=== PATIENT | male | born 1970 ===

== ENCOUNTER 2017-06-17 06:36 | Inpatient (IN) | payer OTHER ==
[2017-06-17] MEDS ORDERED: Sodium Chloride 0.9% 1,000 ML IV STA (07:03)
[2017-06-17 07:21] LABS: BASO # 0.03 K/mm3 (0.0-2.0); BASO % 0.1 % (0.0-3.0); GRAN # 17.88 (1.4-6.5); GRAN % 84.3 % (50.0-68.0); HEMATOCRIT 41.7 % (42.0-52.0); LYMPH # 2.6 (1.2-3.4); LYMPH % 12.3 % (22.0-35.0); MEAN CELL VOLUME 84.6 fl (80.0-105.0); MEAN CORPUSCULAR HEMOGLOBIN 29.2 pg (25.0-35.0); MEAN CORPUSCULAR HGB CONC 34.5 g/dl (31.0-37.0); MEAN PLATELET VOLUME 10.9 fl (7.0-11.0); MONO # 0.7 (0.1-0.6); MONO % 3.3 % (1.0-6.0); PLATELET COUNT 322 10^3/uL (120.0-450.0); RED CELL DISTRIBUTION WIDTH 12.6 % (11.5-14.5); WHITE BLOOD COUNT 21.3 10^3/ul (4.5-11.0)
[2017-06-17 07:22] LABS: ADD MANUAL DIFF? NO
[2017-06-17] MEDS ORDERED: Iohexol 240 (50 ml) ONE (07:30)
--- NOTE | 2017-06-17 07:36 | ED PDOC ---
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 Patient reports he has been having soft stool during bowel movements since Thursday, but today at 1 AM he developed abdominal pain (generalized and sharp in nature--no radiation). He also feels bloated, constipated and at 2:30 AM he began to vomit (3 episodes total). Patient denies eating anything unusual; no one else in his household is sick with similar symptoms. Pt had similar symptoms of abd pain in December and the symptoms resolved after taking Dulcolax. Patient also states felling warm and having diaphoresis (but no documented fever). Patient denies chest pain, shortness of breath, headache, chills, cough, dysuria, hematuria, frequency, flank pain, or other complaints. PMD: Dr. Cox . Time/Duration: < week (3 days) Symptom Onset: Sudden Symptom Course: Unchanged Modifying Factors (Text): None Associated Symptoms (Text): bloated, constipation, nausea, vomiting, subjective fever, and diaphoresis Past Medical History - Provider Review Nursing Documentation Reviewed: Yes - Infectious Disease Hx of Infectious Diseases: None - Tetanus Immunization Tetanus Immunization: Unknown - Past Medical History Past Medical History: No Previous - Cardiac Hx Cardiac Disorders: Yes Hx Heart Murmur: Yes ( A CHILD) Hx Hypertension: Yes - Pulmonary Hx Respiratory Disorders: No (SMOKE H/O) - Neurological Hx Neurological Disorder: No - HEENT Hx HEENT Disorder: No (WEARS RX GLASSES) - Renal Hx Renal Disorder: No - Endocrine/Metabolic Hx Endocrine Disorders: No - Hematological/Oncological Hx Blood Disorders: No - Integumentary Hx Dermatological Disorder: No - Musculoskeletal/Rheumatological Hx Musculoskeletal Disorders: No Hx Falls: No - Gastrointestinal Hx Gastrointestinal Disorders: No (GASTRITIS) - Genitourinary/Gynecological Hx Genitourinary Disorders: No - Psychiatric Hx Psychophysiologic Disorder: No Hx Substance Use: No - Surgical History Hx Musculoskeletal Surgery: Yes (R hand) - Anesthesia Hx Anesthesia: Yes Hx Anesthesia Reactions: No Hx Malignant Hyperthermia: No - Suicidal Assessment Feels Threatened In Home Enviroment: No Family/Social History - Physician Review Nursing Documentation Reviewed: Yes Family/Social History: Neoplasm/Cancer (uncle had prostate cancer) Smoking Status: vape smoker Hx Alcohol Use: Yes Frequency of alcohol use: Socially Hx Substance Use: No Hx Substance Use Treatment: No Allergies/Home Meds Allergies/Adverse Reactions: Allergies No Known Allergies Allergy (Verified 06/17/17 06:52) Home Medications: Home Meds Medication Instructions Recorded Confirmed No Known Home Med 06/17/17 06/17/17 Review of Systems - Review of Systems Constitutional: Fevers Eyes: absent: Vision Changes ENT: absent: Rhinorrhea Respiratory: absent: SOB Cardiovascular: absent: Chest Pain Gastrointestinal: Abdominal Pain, Stool Changes, Constipation, Nausea, Vomiting Genitourinary Male: absent: Dysuria Musculoskeletal: absent: Back Pain Skin: absent: Rash Neurological: absent: Headache Endocrine: Diaphoresis Psychiatric: absent: Anxiety Physical Exam Vital Signs Reviewed: Yes Vital Signs Temp Pulse Resp BP Pulse Ox 06/17/17 10:48 98.7 F 88 20 133/78 99 06/17/17 08:10 80 16 130/77 98 06/17/17 06:44 98.0 F 88 18 135/95 H 96 Temperature: Afebrile Blood Pressure: Hypertensive Pulse: Regular Respiratory Rate: Normal Appearance: Positive for: Well-Appearing, Non-Toxic, Comfortable Pain Distress: None Mental Status: Positive for: Alert and Oriented X 3 - Systems Exam Head: Present: Atraumatic, Normocephalic Pupils: Present: PERRL Extroacular Muscles: Present: EOMI Conjunctiva: Present: Normal Ears: Present: Normal, NORMAL TM, Erythema, Normal Canal, TM Bulging, Fluid, TM Perf, Other Mouth: Present: Moist Mucous Membranes Nose (External): Present: Atraumatic Neck: Present: Normal Range of Motion Respiratory/Chest: Present: Clear to Auscultation, Good Air Exchange. No: Respiratory Distress, Accessory Muscle Use Cardiovascular: Present: Regular Rate and Rhythm, Normal S1, S2. No: Murmurs Abdomen: Present: Tenderness (generalized lower abdomen (right > left) and suprapubic tenderness), Normal Bowel Sounds ((+)). No: Distention, Peritoneal Signs, Guarding, Hernias Back: Present: Normal Inspection Upper Extremity: Present: Normal Inspection. No: Cyanosis, Edema Lower Extremity: Present: Normal Inspection. No: Edema Neurological: Present: GCS=15, Speech Normal, Motor Func Grossly Intact, Normal Sensory Function Skin: Present: Warm, Dry, Normal Color. No: Rashes Psychiatric: Present: Alert, Oriented x 3, Normal Insight, Normal Concentration Medical Decision Making ED Course and Treatment: 06/17/17 07:10 Initial Impression: Undifferentiated Abdominal Pain Differential Diagnosis included but are not limited to: bacterial gastroenteritis, viral gastroenteritis, diverticulitis, appendicitis, bowel obstruction (less likely) Plan: -- Chest X-ray -- CT Abdomen and Pelvis PO & IV contrast -- Labs -- Urinalysis -- Pepcid, Zofran, and Sodium Chloride -- Reassess and disposition Progress Notes: 8:13 AM: Pt states his pain is a "10". Will give pain medication. Pt also vomiting again--will give additional dose of zofran. 06/17/17 09:51 Pt feels a little better but still nauseous. Pt has just returned from CT. I will follow up the CT result. 06/17/17 11:05 CT Abdomen and Pelvis with contrast: Creator : Kishan Bridges MD FINDINGS: LOWER THORAX: Unremarkable. LIVER: Unremarkable. No gross lesion or ductal dilatation. Mild fatty infiltration of the liver GALLBLADDER AND BILE DUCTS: Unremarkable. PANCREAS: Unremarkable. No gross lesion or ductal dilatation. SPLEEN: Unremarkable. ADRENALS: Unremarkable. No mass. KIDNEYS AND URETERS:Unremarkable. No hydronephrosis. No solid mass. 6 mm nonobstructing stone in the left kidney VASCULATURE: Unremarkable. No aortic aneurysm. BOWEL: Unremarkable. No obstruction. No gross mural thickening. APPENDIX: The appendix is dilated measuring 14 mm in diameter. Minimal inflammatory changes are seen around the tip of the appendix. Findings are consistent with early appendicitis PERITONEUM: Unremarkable. No free fluid. No free air. LYMPH NODES: Unremarkable. No enlarged lymph nodes. BLADDER: Unremarkable. REPRODUCTIVE: Unremarkable. BONES: No acute fracture. OTHER FINDINGS: None. IMPRESSION: Distended appendix with minimal inflammatory changes consistent with early acute appendicitis 06/17/17 12:[address] Cox. Recommends admission and to use Dr. Doherty as jury consultant. I spoke to Dr. Doherty. He will evaluate the pt. - Lab Interpretations Lab Results: 06/17/17 07:10 06/17/17 08:17 Lab Results 06/17/17 08:20: Urine Color Yellow, Urine Appearance Clear, Urine pH 8.0, Ur Specific [place] 1.020, Urine Protein Negative, Urine Glucose (UA) Negative, Urine Ketones Negative, Urine Blood Trace-lysed H, Urine Nitrate Negative, Urine Bilirubin Negative, Urine Urobilinogen 0.2, Ur Leukocyte Esterase Negative , Urine RBC 0 - 2, Urine WBC Negative, Ur Epithelial Cells 0 - 2, Urine Bacteria Neg 06/17/17 08:17: Alcohol, Quantitative < 10 06/17/17 08:17: Sodium 139, Potassium 3.8, Chloride 99, Carbon Dioxide 28, Anion Gap 16, BUN 9, Creatinine 0.8, Est GFR ( Amer) > 60, Est GFR (Non- Af Amer) > 60, Random Glucose 122 H, Calcium 8.9, Total Bilirubin 0.7, AST 31, ALT 50, Alkaline Phosphatase 99, Total Protein 7.9, Albumin 4.8, Globulin 3.1, Albumin/Globulin Ratio 1.5, Lipase 38 06/17/17 07:10: WBC 21.3 H D, RBC 4.93, Hgb 14.4, Hct 41.7 L, MCV 84.6, MCH 29.2 , MCHC 34.5, RDW 12.6, Plt Count 322, MPV 10.9, Gran % 84.3 H, Lymph % (Auto) 12.3 L, [place] % (Auto) 3.3, Eos % (Auto) 0.0 L, Baso % (Auto) 0.1, Gran # 17.88 H , Lymph # 2.6, [place] # 0.7 H, Eos # 0.0, Baso # 0.03 I have reviewed the lab results: Yes - RAD Interpretation Radiology Orders: 06/17/17 07:21 ABD PELVIS PO & IV CONTRAST [CT] Stat 06/17/17 11:12 CHEST PORTABLE [RAD] Stat Registered Nurse Practitioner: Radiologist - Medication Orders Current Medication Orders: Acetaminophen (Tylenol 325mg Tab) 650 mg PO Q6H PRN PRN Reason: Fever >100.4 F Docusate Sodium (Colace) 100 mg PO DAILY JOSE Metronidazole (Flagyl) 500 mg in 100 mls @ 100 mls/hr IVPB STAT STA PRN Reason: Protocol Stop: 06/17/17 12:30 Last Admin: 06/17/17 11:55 Dose: 100 mls/hr Metronidazole (Flagyl) 500 mg in 100 mls @ 100 mls/hr IV Q8 [facility] PRN Reason: Protocol Ceftriaxone Sodium (Rocephin 1 Gram Ivpb) 1 gm in 100 mls @ 100 mls/hr IVPB DAILY [facility] PRN Reason: Protocol Sodium Chloride (Sodium Chloride 0.9%) 1,000 mls @ 150 mls/hr IV .Q6H40M [facility] Last Admin: 06/17/17 12:01 Dose: 150 mls/hr Morphine Sulfate (Morphine) 2 mg IVP Q4H PRN PRN Reason: Pain, moderate (4-7) Morphine Sulfate (Morphine) 4 mg IVP Q4H PRN PRN Reason: Pain, severe (8-10) Ondansetron HCl (Zofran Inj) 4 mg IVP Q6H PRN PRN Reason: Nausea/Vomiting Pantoprazole Sodium (Protonix Inj) 40 mg IVP DAILY [facility] Discontinued Medications Famotidine (Pepcid) 20 mg IVP STAT STA Stop: 06/17/17 07:04 Last Admin: 06/17/17 07:27 Dose: 20 mg Sodium Chloride (Sodium Chloride 0.9%) 1,000 mls @ 1,000 mls/hr IV .Q1H STA Stop: 06/17/17 08:02 Last Admin: 06/17/17 08:17 Dose: 1,000 mls/hr Sodium Chloride (Sodium Chloride 0.9%) 1,000 mls @ 100 mls/hr IV .Q10H [facility] Last Admin: 06/17/17 11:58 Dose: Cefazolin Sodium 3 gm/ Sodium (Chloride) 100 mls @ 200 mls/hr IVPB STAT STA Stop: 06/17/17 12:06 Iohexol (Omnipaque 240 (50 Ml)) Confirm Administered Dose 50 ml .ROUTE .STK-MED ONE Stop: 06/17/17 07:31 Iohexol (Omnipaque 350 100 Ml) Confirm Administered Dose 350 mg .ROUTE .STK-MED ONE Stop: 06/17/17 08:59 Morphine Sulfate (Morphine) 5 mg IV STAT STA Stop: 06/17/17 08:05 Last Admin: 06/17/17 08:23 Dose: 5 mg Ondansetron HCl (Zofran Inj) 4 mg IVP STAT STA Stop: 06/17/17 07:04 Last Admin: 06/17/17 07:27 Dose: 4 mg Ondansetron HCl (Zofran Inj) 4 mg IV ONCE ONE Stop: 06/17/17 08:14 Last Admin: 06/17/17 08:22 Dose: 4 mg - Scribe Statement The provider has reviewed the documentation as recorded by the Cheriseibe 06/17/2017 Desiree Yanes Provider Rocio Attestation: All medical record entries made by the Rocio were at my direction and personally dictated by me. I have reviewed the chart and agree that the record accurately reflects my personal performance of the history, physical exam, medical decision making, and the department course for this patient. I have also personally directed, reviewed, and agree with the discharge instructions and disposition. Disposition/Present on Arrival - Present on Arrival Any Indicators Present on Arrival: No History of DVT/PE: No History of Uncontrolled Diabetes: No Urinary Catheter: No History of Decub. Ulcer: No History Surgical Site Infection Following: None - Disposition Have Diagnosis and Disposition been Completed?: Yes Diagnosis: Appendicitis, acute Disposition: HOSPITALIZED Disposition Time: 11:00 Patient Plan: Admission Condition: FAIR
[2017-06-17 08:29] LABS: URINE BILIRUBIN NEGATIVE (NEGATIVE); URINE BLOOD TRACE-LYSED (NEGATIVE); URINE GLUCOSE (UA) NEGATIVE (NEGATIVE); URINE KETONE NEGATIVE (NEGATIVE); URINE LEUKOCYTE ESTERASE NEGATIVE Leu/uL (NEGATIVE); URINE PROTEIN NEGATIVE mg/dL (<30 mg/dL); URINE UROBILINOGEN 0.2 E.U./dL (<1 E.U./dL)
[2017-06-17 08:30] LABS: URINE APPEARANCE CLEAR (CLEAR); URINE COLOR YELLOW (YELLOW)
[2017-06-17 08:45] LABS: URINE BACTERIA NEG (NEG); URINE EPITHELIAL CELLS 0 - 2 /hpf (0-5); URINE RBC 0 - 2 /hpf (0-2); URINE WBC NEGATIVE /hpf (0-6)
[2017-06-17] MEDS ORDERED: Iohexol 350 MG/100 ML VIAL ONE (08:58)
[2017-06-17 09:08] LABS: ALB/GLOB RATIO 1.5 (1.1-1.8); ALKALINE PHOSPHATASE 99 U/L (38-133); ALT/SGPT 50 U/L (7-56); AST/SGOT 31 U/L (15-59); BILIRUBIN,TOTAL 0.7 mg/dL (0.2-1.3); BLOOD UREA NITROGEN 9 mg/dL (7-21); CALCIUM 8.9 mg/dL (8.4-10.5); CARBON DIOXIDE 28 mmol/L (21-33); CHLORIDE 99 mmol/L (98-107); GFR AFRICAN-AMERICAN > 60; GLUCOSE,RANDOM 122 mg/dL (70-110); LIPASE 38 U/L (23-300); POTASSIUM 3.8 mmol/L (3.6-5.0); SODIUM 139 mmol/L (132-148); TOTAL PROTEIN 7.9 g/dL (5.8-8.3)
--- NOTE | 2017-06-17 11:04 | CT ---
PROCEDURE: CT Abdomen and Pelvis with contrast HISTORY: Employee with abd pain COMPARISON: None. TECHNIQUE: Contrast dose: 100 cc of Omni 350 Radiation dose: Total exam DLP = 1375 mGy-cm. This CT exam was performed using one or more of the following dose reduction techniques: Automated exposure control, adjustment of the mA and/or kV according to patient size, and/or use of iterative reconstruction technique. FINDINGS: LOWER THORAX: Unremarkable. LIVER: Unremarkable. No gross lesion or ductal dilatation. Mild fatty infiltration of the liver GALLBLADDER AND BILE DUCTS: Unremarkable. PANCREAS: Unremarkable. No gross lesion or ductal dilatation. SPLEEN: Unremarkable. ADRENALS: Unremarkable. No mass. KIDNEYS AND URETERS: Unremarkable. No hydronephrosis. No solid mass. 6 mm nonobstructing stone in the left kidney VASCULATURE: Unremarkable. No aortic aneurysm. BOWEL: Unremarkable. No obstruction. No gross mural thickening. APPENDIX: The appendix is dilated measuring 14 mm in diameter. Minimal inflammatory changes are seen around the tip of the appendix. Findings are consistent with early appendicitis PERITONEUM: Unremarkable. No free fluid. No free air. LYMPH NODES: Unremarkable. No enlarged lymph nodes. BLADDER: Unremarkable. REPRODUCTIVE: Unremarkable. BONES: No acute fracture. OTHER FINDINGS: None. IMPRESSION: Distended appendix with minimal inflammatory changes consistent with early acute appendicitis
[2017-06-17] MEDS ORDERED: Morphine 2 mg/ml ISec IVP PRN (11:31)
[2017-06-17] MEDS ORDERED: metroNIDAZOLE IV 500 mg/100 ml 500 MG/100 ML BAG IVPB STA (11:31)
[2017-06-17] MEDS ORDERED: Morphine 4 mg/ml ISec IVP PRN (11:31)
--- NOTE | 2017-06-17 11:55 | CP.PCM.HP ---
<Natasha Sherwood - Last Filed: 06/17/17 11:51> History of Present Illness - History of Present Illness History of Present Illness: This is a 47Y M with PMH, Vit D def, Obesity here for abdominal pain x 2 days. It started yesterday, which woke him up out of sleep. The pain was periumbilical , nonradiating and severe and also intermittent. He admits to nonbloody/ nonbilious emesis x 2 yesterday and has had diarrhea that was soft x 4 days. He denies dark stools or blood in stool. Patient also complains of diaphoresis since yesterday. He has had symptoms similar to this for the past 5 months. It was relieved by Colace. Patient denies CP, SOB, numbness/tingling, fever or chills. He also reports recent skin rash on face that is red in color, denies itching. He was supposed to follow up with derm, but has not yet. PMH: HTN (controlled without meds), Obesity, Vit D def PSH: R 2nd finger surgery Meds: None NKDA SH: Vapes daily, drinks 1-2 drinks per month (EtOH), denies drug use FH: Non-contributory Present on Admission - Present on Admission Any Indicators Present on Admission: No Review of Systems - Constitutional Constitutional: absent: Chills, Fever - EENT Eyes: absent: Change in Vision Nose/Mouth/Throat: absent: Dysphagia, Sore Throat - Cardiovascular Cardiovascular: absent: Chest Pain, Palpitations, Syncope - Respiratory Respiratory: absent: Cough, Dyspnea, Hemoptysis - Gastrointestinal Gastrointestinal: Abdominal Pain, Diarrhea, Nausea, Vomiting. absent: Hematemesis, Melena - Genitourinary Genitourinary: absent: Change in Urinary Stream, Dysuria, Pyuria - Musculoskeletal Musculoskeletal: absent: Arthralgias, Numbness, Tingling - Integumentary Integumentary: Changing Lesions (skin redness and peeling on face) - Neurological Neurological: absent: Numbness, Headaches, Syncope, Tingling, Tremor, Vertigo, Weakness - Psychiatric Psychiatric: absent: Anxiety, Depression Past Patient History - Infectious Disease Hx of Infectious Diseases: None - Tetanus Immunizations Tetanus Immunization: Unknown - Past Social History Smoking Status: vape smoker - CARDIAC Hx Cardiac Disorders: Yes Hx Heart Murmur: Yes ( A CHILD) Hx Hypertension: Yes - PULMONARY Hx Respiratory Disorders: No (SMOKE H/O) - NEUROLOGICAL Hx Neurological Disorder: No - HEENT Hx HEENT Problems: No (WEARS RX GLASSES) - RENAL Hx Chronic Kidney Disease: No - ENDOCRINE/METABOLIC Hx Endocrine Disorders: No - HEMATOLOGICAL/ONCOLOGICAL Hx Blood Disorders: No - INTEGUMENTARY Hx Dermatological Problems: No - MUSCULOSKELETAL/RHEUMATOLOGICAL Hx Musculoskeletal Disorders: No Hx Falls: No - GASTROINTESTINAL Hx Gastrointestinal Disorders: No (GASTRITIS) - GENITOURINARY/GYNECOLOGICAL Hx Genitourinary Disorders: No - PSYCHIATRIC Hx Psychophysiologic Disorder: No Hx Substance Use: No - SURGICAL HISTORY Hx Musculoskeletal Surgery: Yes (R hand) - ANESTHESIA Hx Anesthesia: Yes Hx Anesthesia Reactions: No Hx Malignant Hyperthermia: No Meds Allergies/Adverse Reactions: Allergies Allergy/AdvReac Type Severity Reaction Status Date / Time No Known Allergies Allergy Verified 06/17/17 06:52 Physical Exam - Constitutional Appears: No Acute Distress - Head Exam Head Exam: ATRAUMATIC, NORMAL INSPECTION, NORMOCEPHALIC - Eye Exam Eye Exam: Normal appearance, PERRL Pupil Exam: NORMAL ACCOMODATION - ENT Exam ENT Exam: Mucous Membranes Dry - Respiratory Exam Respiratory Exam: Clear to Auscultation Bilateral, NORMAL BREATHING PATTERN. absent: Rales, Rhonchi, Wheezes - Cardiovascular Exam Cardiovascular Exam: REGULAR RHYTHM, +S1, +S2. absent: Gallop, Rubs, Systolic Murmur - GI/Abdominal Exam GI & Abdominal Exam: Guarding (on RLQ), Normal Bowel Sounds, Soft, Tenderness ( LLQ and RLQ). absent: Rebound, Rigid Additional comments: + [place], Neg rovsing - Extremities Exam Extremities exam: Positive for: normal inspection. Negative for: calf tenderness, pedal edema - Neurological Exam Neurological exam: Alert, CN II-XII Intact, Oriented x3 - Psychiatric Exam Psychiatric exam: Normal Affect, Normal Mood - Skin Skin Exam: Warm Additional comments: diffuse redness on face Results - Vital Signs Recent Vital Signs: Last Vital Signs Temp 98.7 F 06/17/17 10:48 Pulse 88 06/17/17 10:48 Resp 20 06/17/17 10:48 BP 133/78 06/17/17 10:48 Pulse Ox 99 06/17/17 10:48 - Labs Result Diagrams: 06/17/17 07:10 06/17/17 08:17 - EKG Data EKG Interpreted by: Myself EKG shows normal: Sinus rhythm Rate: Normal Assessment & Plan - Assessment and Plan (Free Text) Assessment: This is a 47Y M with PMH, Vit D def, Obesity admitted for acute appendicitis. Plan: 1. Acute appendicitis - CT showed dilation and mild inflammation of appendix - afebrile, leukocytosis - Surgery consulted- pt will go to OR today - IV fluids, Pain control - Zofran prn nausea - Continue Rocephin and Flagyl - NPO - Tylenol prn fever - procal and lactic acid pending 2. Hx of HTN - Not on HTN meds at home - Continue to monitor 3. Hx of Vit D def - Will check Vit D GI ppx: Protonix DVT ppx: SCDs Case seen, reviewed and discussed with attending Radha Sherwood PGY2 - Date & Time Date: 06/17/17 Time: 12:03 <Micah Cox - Last Filed: 07/22/17 20:54> Results - Vital Signs Recent Vital Signs: Last Vital Signs Temp 98.7 F 06/21/17 06:00 Pulse 75 06/21/17 06:00 Resp 18 06/21/17 06:00 BP 146/98 H 06/21/17 06:00 Pulse Ox 96 06/21/17 06:00 - Labs Result Diagrams: 06/21/17 06:30 06/21/17 06:30 Attending/Attestation - Attestation I have personally seen and examined this patient.: Yes I have fully participated in the care of the patient.: Yes I have reviewed all pertinent clinical information: Yes
[2017-06-17] MEDS: Sodium Chloride 0.9% 1,000 ML IV SCH ×3 (11:56→12:01)
--- NOTE | 2017-06-17 12:20 | RAD ---
HISTORY: For OR (medical clearance) COMPARISON: 05/28/2015 FINDINGS: LUNGS: No active pulmonary disease. PLEURA: No significant pleural effusion identified, no pneumothorax apparent. CARDIOVASCULAR: Mild cardiomegaly- similar-appearing OSSEOUS STRUCTURES: No significant abnormalities. VISUALIZED UPPER ABDOMEN: Normal. OTHER FINDINGS: None. IMPRESSION: No active disease.
[2017-06-17 12:27] LABS: INR 1.03 (0.93-1.08); PARTIAL THROMBOPLASTIN TIME 26.1 Seconds (23.7-30.8)
--- NOTE | 2017-06-17 12:39 | CP.PCM.CON ---
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 Pt experienced this type of pain once before about 6 months ago. He admits to taking ducolax at that time with resolution of the pain. Since Thursday, the pain has progressively become worse ( progressing from dull to sharp) and now localizes primarily to the RLQ. Pt additionally admits to nausea since yesterday, several episodes of nonbilious/ nonbloody vomiting this morning, and anorexia. ROS: Admits: nausea, vomiting, diarrhea, abdominal pain, Denies: chest pain, shortness of breath, fever, chills, muscle weakness. Social Hx: Smoking: admits to using vaporizer, EtOH: occasional use, Denies drug use PMH: Vit D deficiency, obesity, HTN NKDA PSH: Second finger surgery several years ago Family Hx: noncontributory Meds: None Review of Systems - Review of Systems All systems: reviewed and no additional remarkable complaints except (see HPI) Past Patient History - Infectious Disease Hx of Infectious Diseases: None - Tetanus Immunizations Tetanus Immunization: Unknown - Past Social History Smoking Status: vape smoker - CARDIAC Hx Cardiac Disorders: Yes Hx Heart Murmur: Yes ( A CHILD) Hx Hypertension: Yes - PULMONARY Hx Respiratory Disorders: No (SMOKE H/O) - NEUROLOGICAL Hx Neurological Disorder: No - HEENT Hx HEENT Problems: No (WEARS RX GLASSES) - RENAL Hx Chronic Kidney Disease: No - ENDOCRINE/METABOLIC Hx Endocrine Disorders: No - HEMATOLOGICAL/ONCOLOGICAL Hx Blood Disorders: No - INTEGUMENTARY Hx Dermatological Problems: No - MUSCULOSKELETAL/RHEUMATOLOGICAL Hx Musculoskeletal Disorders: No Hx Falls: No - GASTROINTESTINAL Hx Gastrointestinal Disorders: No (GASTRITIS) - GENITOURINARY/GYNECOLOGICAL Hx Genitourinary Disorders: No - PSYCHIATRIC Hx Psychophysiologic Disorder: No Hx Substance Use: No - SURGICAL HISTORY Hx Musculoskeletal Surgery: Yes (R hand) - ANESTHESIA Hx Anesthesia: Yes Hx Anesthesia Reactions: No Hx Malignant Hyperthermia: No Meds Allergies/Adverse Reactions: Allergies Allergy/AdvReac Type Severity Reaction Status Date / Time No Known Allergies Allergy Verified 06/17/17 06:52 - Medications Medications: Current Medications Acetaminophen (Tylenol 325mg Tab) 650 mg PO Q6H PRN PRN Reason: Fever >100.4 F Docusate Sodium (Colace) 100 mg PO DAILY [facility] Metronidazole (Flagyl) 500 mg in 100 mls @ 100 mls/hr IVPB STAT STA PRN Reason: Protocol Stop: 06/17/17 12:30 Last Admin: 06/17/17 11:55 Dose: 100 mls/hr Metronidazole (Flagyl) 500 mg in 100 mls @ 100 mls/hr IV Q8 JOSE PRN Reason: Protocol Ceftriaxone Sodium (Rocephin 1 Gram Ivpb) 1 gm in 100 mls @ 100 mls/hr IVPB DAILY JOSE PRN Reason: Protocol Sodium Chloride (Sodium Chloride 0.9%) 1,000 mls @ 150 mls/hr IV .Q6H40M [facility] Last Admin: 06/17/17 12:01 Dose: 150 mls/hr Morphine Sulfate (Morphine) 2 mg IVP Q4H PRN PRN Reason: Pain, moderate (4-7) Morphine Sulfate (Morphine) 4 mg IVP Q4H PRN PRN Reason: Pain, severe (8-10) Ondansetron HCl (Zofran Inj) 4 mg IVP Q6H PRN PRN Reason: Nausea/Vomiting Pantoprazole Sodium (Protonix Inj) 40 mg IVP DAILY [facility] Physical Exam - Constitutional Appears: Non-toxic, No Acute Distress - Head Exam Head Exam: ATRAUMATIC, NORMOCEPHALIC - Eye Exam Eye Exam: EOMI, Normal appearance - ENT Exam ENT Exam: Mucous Membranes Moist - Respiratory Exam Respiratory Exam: NORMAL BREATHING PATTERN. absent: Respiratory Distress - Cardiovascular Exam Cardiovascular Exam: absent: Bradycardia, Tachycardia - GI/Abdominal Exam GI & Abdominal Exam: Soft, Tenderness (Diffusely ttp). absent: Firm, Rebound, Rigid - Extremities Exam Extremities exam: Positive for: full ROM - Neurological Exam Neurological exam: Alert, Oriented x3 - Psychiatric Exam Psychiatric exam: Normal Affect, Normal Mood - Skin Skin Exam: Dry, Normal Color, Warm Results - Vital Signs Recent Vital Signs: Last Vital Signs Temp 98.4 F 06/17/17 12:21 Pulse 88 06/17/17 12:21 Resp 16 06/17/17 12:21 BP 129/82 06/17/17 12:21 Pulse Ox 99 06/17/17 12:21 - Labs Result Diagrams: 06/17/17 07:10 06/17/17 08:17 Labs: Laboratory Results - last 24 hr 06/17/17 06/17/17 11:55 12:00 Lactic Acid 1.7 BBK History Checked No verified bt - Imaging and Cardiology CT scan - abdomen Status: Image reviewed by me Chest x-ray Status: Image reviewed by me Assessment & Plan - Assessment and Plan (Free Text) Assessment: 47 yo male with acute appendicitis Plan: 1. schedule for appendectomy with Dr. Doherty 2. NPO 3. IV fluids 4. pain control PRN 5. anti-emetic 6. DVT prophylaxis Pt seen and discussed with Dr. Chas Felipe, PGY 2 <Florencio Doherty - Last Filed: 06/17/17 14:30> Meds - Medications Medications: Current Medications Acetaminophen (Tylenol 325mg Tab) 650 mg PO Q6H PRN PRN Reason: Fever >100.4 F Docusate Sodium (Colace) 100 mg PO DAILY [facility] Hydromorphone HCl (Dilaudid) 0.5 mg IVP Q4H PRN PRN Reason: Pain, moderate (4-7) Metronidazole (Flagyl) 500 mg in 100 mls @ 100 mls/hr IV Q8 JOSE PRN Reason: Protocol Ceftriaxone Sodium (Rocephin 1 Gram Ivpb) 1 gm in 100 mls @ 100 mls/hr IVPB DAILY [facility] PRN Reason: Protocol Sodium Chloride (Sodium Chloride 0.9%) 1,000 mls @ 150 mls/hr IV .Q6H40M [facility] Last Admin: 06/17/17 12:01 Dose: 150 mls/hr Ondansetron HCl (Zofran Inj) 4 mg IVP Q6H PRN PRN Reason: Nausea/Vomiting Pantoprazole Sodium (Protonix Inj) 40 mg IVP DAILY [facility] Results - Vital Signs Recent Vital Signs: Last Vital Signs Temp 97.7 F 06/17/17 13:29 Pulse 82 06/17/17 13:29 Resp 18 06/17/17 13:29 BP 150/96 H 06/17/17 13:29 Pulse Ox 95 06/17/17 13:29 - Labs Result Diagrams: 06/17/17 07:10 06/17/17 08:17 Labs: Laboratory Results - last 24 hr 08/16/17 08/16/17 08/16/17 11:55 12:00 12:00 PT 11.1 INR 1.03 APTT 26.1 Lactic Acid 1.7 Blood Type A POSITIVE Antibody Screen Negative BBK History Checked No verified bt Assessment & Plan - Assessment and Plan (Free Text) Assessment: Dx Acute Appendicitis consult done under my direct supervision plan Emergency appendectomy today Asael Doherty MD FACS
--- NOTE | 2017-06-17 13:10 | CARD ---
APPROVED REPORT EKG Measurement Heart [id number] <Conclusion> Normal sinus rhythm Poor R Progression V1-V3.
[2017-06-17] MEDS ORDERED: Propofol 10 mg/ml Inj (20 ML) ONE (15:57)
[2017-06-17] MEDS ORDERED: Midazolam 2 MG/2 ML VIAL ONE (15:57)
[2017-06-17] MEDS ORDERED: Succinylcholine 200 mg/10 ml Inj IV ONE (15:57)
[2017-06-17] MEDS ORDERED: Rocuronium 10 mg/ml (5 ml) ONE (15:57)
[2017-06-17] MEDS ORDERED: Lidocaine 1% Inj (20ml) ONE (15:57)
[2017-06-17] MEDS ORDERED: Bupivacaine 0.5% Inj(30mL) ONE (16:02)
[2017-06-17] MEDS ORDERED: Labetalol 5 mg/ml Inj 20ML ONE (16:38)
[2017-06-17] MEDS ORDERED: Neostigmine Methylsulfate 3mg/3ml Syringe IV ONE (16:40)
[2017-06-17] MEDS ORDERED: HYDROmorphone 0.5 mg/0.5 ml ISec IVP PRN (17:14)
[2017-06-17] MEDS ORDERED: Lactated Ringer's 1,000 ML IV SCH (17:14)
--- NOTE | 2017-06-17 17:16 | PCM.SURG1 ---
Surgeon's Initial Post Op Note - Surgeon's Notes Surgeon: Dr Doherty Chemical Applicator: Dr Melendez PGY3, Jakob MS4 Type of Anesthesia: General Endo Pre-Operative Diagnosis: acute appendicitis Operative Findings: as above Post-Operative Diagnosis: as above Operation Performed: laparoscopic appendectomy Specimen/Specimens Removed: appendix Estimated Blood Loss: EBL {In ML}: 5 Blood Products Given: N/A Drains Used: No Drains Post-Op Condition: Good Date of Surgery/Procedure: 06/17/17 Time of Surgery/Procedure: 17:16
[2017-06-17] MEDS: metroNIDAZOLE IV 500 mg in 100 ML IVPB SCH (21:01)
[2017-06-17] MEDS: HYDROmorphone 0.5 mg/0.5 ml ISec IVP PRN (21:36)
[2017-06-17 21:37] VITALS: BMI 42.3
[2017-06-17] MEDS ORDERED: Pneumococcal 23-Valent Vaccine IM ONE (21:37)
[2017-06-17] MEDS ORDERED: metroNIDAZOLE IV 500 mg/100 ml 500 MG/100 ML BAG IV SCH (22:00)
[2017-06-17] MEDS: ceFAZolin 1 gm in NS 1 GM/100 ML BAG IVPB SCH (22:27)
[2017-06-18] MEDS: HYDROmorphone 0.5 mg/0.5 ml ISec IVP PRN (02:34)
[2017-06-18] MEDS: Sodium Chloride 0.9% 1,000 ML IV SCH (02:43)
[2017-06-18] MEDS: metroNIDAZOLE IV 500 mg in 100 ML IVPB SCH ×3 (05:10→21:33)
[2017-06-18] MEDS: ceFAZolin 1 gm in NS 1 GM/100 ML BAG IVPB SCH ×3 (05:49→21:33)
--- NOTE | 2017-06-18 07:20 | CP.PCM.PN ---
Subjective - Date & Time of Evaluation Date of Evaluation: 06/18/17 Time of Evaluation: 06:55 - Subjective Subjective: Patient seen and examined at bedside. No acute events overnight. Patient is resting comfortably in bed. Tolerating diet. Denies fever, chills, chest pain, SOB, abdominal pain, N/V. Objective - Vital Signs/Intake and Output Vital Signs (last 24 hours): Temp Pulse Resp BP Pulse Ox 97.8 F 90 18 111/73 99 06/17/17 21:23 06/17/17 21:23 06/17/17 21:23 06/17/17 21:23 06/17/17 18:41 Intake and Output: 06/18/17 06/18/17 06:59 18:59 Intake Total 240 120 Output Total 900 800 Balance -660 -680 - Medications Medications: Current Medications Acetaminophen (Tylenol 325mg Tab) 650 mg PO Q6H PRN PRN Reason: Fever >100.4 F Enoxaparin Sodium (Lovenox) 40 mg SC DAILY [facility] PRN Reason: Protocol Hydromorphone HCl (Dilaudid) 0.5 mg IVP Q4H PRN PRN Reason: Pain, moderate (4-7) Last Admin: 06/18/17 02:34 Dose: 0.5 mg Hydromorphone HCl (Dilaudid) 0.5 mg IVP Q15M PRN PRN Reason: Pain, moderate (4-7) Sodium Chloride (Sodium Chloride 0.9%) 1,000 mls @ 150 mls/hr IV .Q6H40M [facility] Last Admin: 06/18/17 02:43 Dose: 150 mls/hr Metronidazole (Flagyl) 500 mg in 100 mls @ 100 mls/hr IVPB Q8 [facility] Stop: 06/24/17 22:01 Last Admin: 06/18/17 05:10 Dose: 100 mls/hr Cefazolin Sodium (Ancef 1gm In Ns) 1 gm in 100 mls @ 100 mls/hr IVPB Q8 [facility] Stop: 06/24/17 22:01 Last Admin: 06/18/17 05:49 Dose: 100 mls/hr Ondansetron HCl (Zofran Inj) 4 mg IVP Q6H PRN PRN Reason: Nausea/Vomiting - Labs Labs: PT 11.1 Seconds (9.9-11.8) 06/17/17 12:00 INR 1.03 (0.93-1.08) 06/17/17 12:00 APTT 26.1 Seconds (23.7-30.8) 06/17/17 12:00 - Additional Findings Additional findings: - Constitutional Appears: Non-toxic, No Acute Distress - Head Exam Head Exam: ATRAUMATIC, NORMOCEPHALIC - Eye Exam Eye Exam: EOMI, Normal appearance - ENT Exam ENT Exam: Mucous Membranes Moist - Respiratory Exam Respiratory Exam: NORMAL BREATHING PATTERN. absent: Respiratory Distress - Cardiovascular Exam Cardiovascular Exam: absent: Bradycardia, Tachycardia - GI/Abdominal Exam GI & Abdominal Exam: Soft, absent: Firm, Rebound, Rigid - Extremities Exam Extremities exam: Positive for: full ROM - Neurological Exam Neurological exam: Alert, Oriented x3 - Psychiatric Exam Psychiatric exam: Normal Affect, Normal Mood - Skin Skin Exam: Dry, Normal Color, Warm Assessment and Plan - Assessment and Plan (Free Text) Assessment: 47 yo M POD #1 s/p laproscopic appendectomy. - Regular diet - Pain control - OOB - IS - continue ceftriaxone and metronidazole - zofran - Pepcid - Lovenox will d/w attending
[2017-06-18 07:35] LABS: ADD MANUAL DIFF? NO
[2017-06-18 07:42] LABS: BASO # 0.01 K/mm3 (0.0-2.0); BASO % 0.1 % (0.0-3.0); EOS # 0.1 (0.0-0.7); EOS % 0.5 % (1.5-5.0); GRAN # 8.06 (1.4-6.5); GRAN % 60.8 % (50.0-68.0); HEMATOCRIT 37.7 % (42.0-52.0); LYMPH % 29.8 % (22.0-35.0); MEAN CELL VOLUME 85.9 fl (80.0-105.0); MEAN CORPUSCULAR HEMOGLOBIN 29.2 pg (25.0-35.0); MEAN PLATELET VOLUME 11.2 fl (7.0-11.0); MONO # 1.2 (0.1-0.6); MONO % 8.8 % (1.0-6.0); PLATELET COUNT 280 10^3/uL (120.0-450.0); RED CELL DISTRIBUTION WIDTH 12.8 % (11.5-14.5); WHITE BLOOD COUNT 13.3 10^3/ul (4.5-11.0)
[2017-06-18 08:02] LABS: ALB/GLOB RATIO 1.4 (1.1-1.8); ALKALINE PHOSPHATASE 80 U/L (38-133); ALT/SGPT 35 U/L (7-56); AST/SGOT 26 U/L (15-59); BILIRUBIN,TOTAL 0.8 mg/dL (0.2-1.3); BLOOD UREA NITROGEN 8 mg/dL (7-21); CALCIUM 8.4 mg/dL (8.4-10.5); CARBON DIOXIDE 25 mmol/L (21-33); CHLORIDE 103 mmol/L (98-107); GFR AFRICAN-AMERICAN > 60; GLUCOSE,RANDOM 97 mg/dL (70-110); POTASSIUM 3.5 mmol/L (3.6-5.0); SODIUM 139 mmol/L (132-148); TOTAL PROTEIN 6.4 g/dL (5.8-8.3)
[2017-06-18] MEDS ORDERED: Potassium Chloride 20 mEq ER Tab PO ONE ×2 (09:17→10:59)
[2017-06-18] MEDS: Enoxaparin 40 mg Syringe SC SCH (09:36)
[2017-06-18] MEDS ORDERED: cefTRIAXone 1 gm 1 GM/100 ML BAG IVPB SCH (10:00)
--- NOTE | 2017-06-18 10:07 | CP.PCM.DIS ---
Provider - Provider Date of Admission: 06/17/17 11:14 Attending physician: Micah Cox MD Primary care physician: Micah Cox MD Consults: Surgery-Chas Time Spent in preparation of Discharge (in minutes): 40 Diagnosis - Discharge Diagnosis (1) S/P appendectomy Status: Acute Hospital Course - Lab Results Lab Results: Most Recent Lab Values WBC 13.3 10^3/ul (4.5-11.0) H D 06/18/17 07:00 RBC 4.39 10^6/uL (3.5-6.1) 06/18/17 07:00 Hgb 12.8 g/dL (14.0-18.0) L 06/18/17 07:00 Hct 37.7 % (42.0-52.0) L 06/18/17 07:00 MCV 85.9 fl (80.0-105.0) 06/18/17 07:00 MCH 29.2 pg (25.0-35.0) 06/18/17 07:00 MCHC 34.0 g/dl (31.0-37.0) 06/18/17 07:00 RDW 12.8 % (11.5-14.5) 06/18/17 07:00 Plt Count 280 10^3/uL (120.0-450.0) 06/18/17 07:00 MPV 11.2 fl (7.0-11.0) H 06/18/17 07:00 Gran % 60.8 % (50.0-68.0) 06/18/17 07:00 Lymph % (Auto) 29.8 % (22.0-35.0) 06/18/17 07:00 Brown % (Auto) 8.8 % (1.0-6.0) H 06/18/17 07:00 Eos % (Auto) 0.5 % (1.5-5.0) L 06/18/17 07:00 Baso % (Auto) 0.1 % (0.0-3.0) 06/18/17 07:00 Gran # 8.06 (1.4-6.5) H 06/18/17 07:00 Lymph # 4.0 (1.2-3.4) H 06/18/17 07:00 Brown # 1.2 (0.1-0.6) H 06/18/17 07:00 Eos # 0.1 (0.0-0.7) 06/18/17 07:00 Baso # 0.01 K/mm3 (0.0-2.0) 06/18/17 07:00 PT 11.1 Seconds (9.9-11.8) 06/17/17 12:00 INR 1.03 (0.93-1.08) 06/17/17 12:00 APTT 26.1 Seconds (23.7-30.8) 06/17/17 12:00 Sodium 139 mmol/L (132-148) 06/18/17 07:00 Potassium 3.5 mmol/L (3.6-5.0) L 06/18/17 07:00 Chloride 103 mmol/L (98-107) 06/18/17 07:00 Carbon Dioxide 25 mmol/L (21-33) 06/18/17 07:00 Anion Gap 15 (10-20) 06/18/17 07:00 BUN 8 mg/dL (7-21) 06/18/17 07:00 Creatinine 0.8 mg/dL (0.5-1.4) 06/18/17 07:00 Est GFR ( Amer) > 60 06/18/17 07:00 Est GFR (Non-Af Amer) > 60 06/18/17 07:00 Random Glucose 97 mg/dL (70-110) 06/18/17 07:00 Lactic Acid 1.7 mmol/L (0.7-2.1) 06/17/17 12:00 Calcium 8.4 mg/dL (8.4-10.5) 06/18/17 07:00 Total Bilirubin 0.8 mg/dL (0.2-1.3) 06/18/17 07:00 AST 26 U/L (15-59) 06/18/17 07:00 ALT 35 U/L (7-56) 06/18/17 07:00 Alkaline Phosphatase 80 U/L (38-133) 06/18/17 07:00 Total Protein 6.4 g/dL (5.8-8.3) 06/18/17 07:00 Albumin 3.7 g/dL (3.0-4.8) 06/18/17 07:00 Globulin 2.7 gm/dL 06/18/17 07:00 Albumin/Globulin Ratio 1.4 (1.1-1.8) 06/18/17 07:00 Lipase 38 U/L (23-300) 06/17/17 08:17 Procalcitonin < 0.05 NG/ML (0.19-0.49) L 06/17/17 11:55 Urine Color Yellow (YELLOW) 06/17/17 08:20 Urine Appearance Clear (CLEAR) 06/17/17 08:20 Urine pH 8.0 (4.7-8.0) 06/17/17 08:20 Ur Specific [place] 1.020 (1.005-1.035) 06/17/17 08:20 Urine Protein Negative mg/dL (<30 mg/dL) 06/17/17 08:20 Urine Glucose (UA) Negative mg/dL (NEGATIVE) 06/17/17 08:20 Urine Ketones Negative mg/dL (NEGATIVE) 06/17/17 08:20 Urine Blood Trace-lysed (NEGATIVE) H 06/17/17 08:20 Urine Nitrate Negative (NEGATIVE) 06/17/17 08:20 Urine Bilirubin Negative (NEGATIVE) 06/17/17 08:20 Urine Urobilinogen 0.2 E.U./dL (<1 E.U./dL) 06/17/17 08:20 Ur Leukocyte Esterase Negative Narayan/uL (NEGATIVE) 06/17/17 08:20 Urine RBC 0 - 2 /hpf (0-2) 06/17/17 08:20 Urine WBC Negative /hpf (0-6) 06/17/17 08:20 Ur Epithelial Cells 0 - 2 /hpf (0-5) 06/17/17 08:20 Urine Bacteria Neg (NEG) 06/17/17 08:20 Alcohol, Quantitative < 10 mg/dL (0-10) 06/17/17 08:17 Blood Type A POSITIVE 06/17/17 11:55 Blood Type Confirm A POSITIVE 06/17/17 14:00 Antibody Screen Negative 06/17/17 11:55 BBK History Checked No verified bt 06/17/17 11:55 - Hospital Course Hospital Course: 47Y M with PMH, Vit D def, Obesity here for abdominal pain x 2 days. Work up w/ findings of acute appendicitis: CT abdomen with dilation and mild inflammation of appendix, leukocytosis. Pt placed on IVF, antibiotics, pain mgmt, anti- emetics, made NPO, taken to OR for appendectomy. Pt tolerated procedure well, tolerating diet, ambulating, pain well controlled, stable and ready for discharge home as per surgery. Pt to follow up with surgeon and Dr. Cox in 1-2 weeks after hospitalization. Diagnoses: Appendicitis, s/p appendectomy, chronic skin lesions, vit D deficiency, HTN - Date & Time of H&P Date of H&P: 06/17/17 Time of H&P: 11:51 Discharge Exam - Head Exam Head Exam: ATRAUMATIC, NORMAL INSPECTION, NORMOCEPHALIC - Eye Exam Eye Exam: EOMI, Normal appearance - ENT Exam ENT Exam: Mucous Membranes Moist, Normal Exam - Neck Exam Neck exam: Full Rom, Normal Inspection - Respiratory Exam Respiratory Exam: Clear to PA & Lateral, NORMAL BREATHING PATTERN, UNREMARKABLE. absent: Chest Wall Tenderness, Rales, Rhonchi, Wheezes, Respiratory Distress - Cardiovascular Exam Cardiovascular Exam: REGULAR RHYTHM, +S1, +S2 - GI/Abdominal Exam GI & Abdominal Exam: Normal Bowel Sounds, Soft, Tenderness (over incisions), Unremarkable. absent: Distended (obese), Firm, Guarding, Hernia, Rebound, Rigid Additional comments: incisional sites with surgical dressings in place-C/D/I - Extremities Exam Extremities exam: full ROM - Neurological Exam Neurological exam: Alert, CN II-XII Intact, Oriented x3 - Psychiatric Exam Psychiatric exam: Normal Affect, Normal Mood - Skin Skin Exam: Dry, Intact, Normal Color, Warm Discharge Plan - Discharge Medications Prescriptions: Ciprofloxacin [Cipro] 500 mg PO BID #14 tab metroNIDAZOLE [Flagyl] 500 mg PO BID #14 tab - Follow Up Plan Condition: GOOD Disposition: HOME/ ROUTINE Instructions: Appendicitis (DC), Laparoscopic Appendectomy (DC) Additional Instructions: No heavy lifting for 4-6 wks or until cleared by surgeon. You may remove the outer bandaids from your surgical sites tomorrow and shower. Gently clean incision sites with soap and water, the steri-strips will fall off on their own. Continue to walk around, use incentive spirometer at home, especially if you are not getting up out of bed. You may take Motrin for pain at home. Please take all antibiotics as prescribed. Please follow up with Dr. Cox in his office in 1-2 weeks. Please follow up with Dr. Doherty in his office in 1-2 wks. Please return to hospital if you have fevers, chills, or a recurrence of pain. Referrals: Micah Cox MD [Primary Care Provider] - Florencio Doherty MD [Staff Provider] -
[2017-06-18] MEDS ORDERED: HYDROmorphone 0.5 mg/0.5 ml ISec IVP PRN (10:20)
[2017-06-18] MEDS ORDERED: POLYETHYLENE GLYCOL 3350 17 GM/Dose PACKET PO ONE (13:54)
[2017-06-18] MEDS ORDERED: Vancomycin 1gm in NS 250ml 1 GM/250 ML BAG IVPB STA (14:18)
--- NOTE | 2017-06-18 14:47 | CP.PCM.PN ---
<Jenna Morgan - Last Filed: 06/18/17 14:47> Subjective - Date & Time of Evaluation Date of Evaluation: 06/18/17 Time of Evaluation: 14:44 - Subjective Subjective: Internal medicine progress note for Dr. Hussein Morgan, PGY-1 Pt S & E at bedside. Pt doing well overnight, pain well controlled, tolerating diet. Pt ambulating, voiding freely. Denies N/V/F/C, SOB, CP, flatus, BM. Objective - Vital Signs/Intake and Output Vital Signs (last 24 hours): Temp Pulse Resp BP Pulse Ox 98.2 F 69 18 112/72 95 06/18/17 08:33 06/18/17 08:33 06/18/17 08:33 06/18/17 08:33 06/18/17 08:33 Intake and Output: 06/18/17 06/18/17 06:59 18:59 Intake Total 2500 120 Output Total 900 800 Balance 1600 -680 - Medications Medications: Current Medications Acetaminophen (Tylenol 325mg Tab) 650 mg PO Q6H PRN PRN Reason: Fever >100.4 F Cholecalciferol (Vitamin D) 2,000 iu PO DAILY [facility] Enoxaparin Sodium (Lovenox) 40 mg SC DAILY [facility] PRN Reason: Protocol Last Admin: 06/18/17 09:36 Dose: 40 mg Hydromorphone HCl (Dilaudid) 0.5 mg IVP Q4H PRN PRN Reason: Pain, severe (8-10) Metronidazole (Flagyl) 500 mg in 100 mls @ 100 mls/hr IVPB Q8 [facility] Stop: 06/24/17 22:01 Last Admin: 06/18/17 14:20 Dose: 100 mls/hr Cefazolin Sodium (Ancef 1gm In Ns) 1 gm in 100 mls @ 100 mls/hr IVPB Q8 [facility] Stop: 06/24/17 22:01 Last Admin: 06/18/17 14:20 Dose: 100 mls/hr Vancomycin HCl (Vancomycin 1gm) 1 gm in 250 mls @ 167 mls/hr IVPB STAT STA PRN Reason: Protocol Stop: 06/18/17 15:47 Ondansetron HCl (Zofran Inj) 4 mg IVP Q6H PRN PRN Reason: Nausea/Vomiting Pantoprazole Sodium (Protonix Ec Tab) 40 mg PO 0600,1600 JOSE Tramadol HCl (Ultram) 50 mg PO TID PRN PRN Reason: Pain, moderate (4-7) - Labs Labs: 06/18/17 07:00 06/18/17 07:00 PT 11.1 Seconds (9.9-11.8) 06/17/17 12:00 INR 1.03 (0.93-1.08) 06/17/17 12:00 APTT 26.1 Seconds (23.7-30.8) 06/17/17 12:00 - Constitutional Appears: Non-toxic, No Acute Distress - Head Exam Head Exam: ATRAUMATIC, NORMAL INSPECTION, NORMOCEPHALIC - Eye Exam Eye Exam: EOMI, Normal appearance - ENT Exam ENT Exam: Mucous Membranes Moist, Normal Exam - Neck Exam Neck Exam: Full ROM, Normal Inspection - Respiratory Exam Respiratory Exam: Clear to Ausculation Bilateral, NORMAL BREATHING PATTERN - Cardiovascular Exam Cardiovascular Exam: REGULAR RHYTHM, +S1, +S2 - GI/Abdominal Exam GI & Abdominal Exam: Soft, Tenderness, Normal Bowel Sounds. absent: Distended ( obese ), Firm, Guarding, Rigid Additional comments: 3 surgical abdominal sites with bandaids in place, umbilical dressing with some dried sanguinous strike through - Extremities Exam Extremities Exam: Full ROM, Normal Inspection. absent: Pedal Edema - Neurological Exam Neurological Exam: Alert, Awake, CN II-XII Intact, Normal Gait, Oriented x3 - Psychiatric Exam Psychiatric exam: Normal Affect, Normal Mood - Skin Skin Exam: Dry, Intact, Normal Color, Warm Assessment and Plan (1) S/P appendectomy Status: Acute - Assessment and Plan (Free Text) Assessment: 47YO M w/PMH, Vit D def, Obesity POD#1 s/p appendectomy, doing well post op Plan: Acute appendicitis POD#1 s/p appendectomy Afebrile Leukocytosis down trending Surgery D/c'd IVF On regular diet Zofran PRN pain mgmt Cont Flagyl, Ancef Cont Tylenol prn fever Blood cx positive for G+ cocci in clusters x 1 FU CXR FU obstructive series Repeat Blood cxr Vanc 1 gm x 1 Hx of HTN BP WNL Not on HTN meds at home Continue to monitor Hx of Vit D def Vit D GI/DVT ppx Protonix Lovenox SCDs while in bed Ambulate DW attending Cathy, PGY-1 <KennyMicah U - Last Filed: 07/22/17 20:55> Objective - Vital Signs/Intake and Output Vital Signs (last 24 hours): Temp Pulse Resp BP Pulse Ox 98.7 F 75 18 146/98 H 96 06/21/17 06:00 06/21/17 06:00 06/21/17 06:00 06/21/17 06:00 06/21/17 06:00 - Labs Labs: 06/21/17 06:30 06/21/17 06:30 PT 11.1 Seconds (9.9-11.8) 06/17/17 12:00 INR 1.03 (0.93-1.08) 06/17/17 12:00 APTT 26.1 Seconds (23.7-30.8) 06/17/17 12:00 Attending/Attestation - Attestation I have personally seen and examined this patient.: Yes I have fully participated in the care of the patient.: Yes I have reviewed all pertinent clinical information, including history, physical exam and plan: Yes
[2017-06-18] MEDS: Pantoprazole 40 mg EC Tab PO SCH (16:17)
--- NOTE | 2017-06-18 16:30 | RAD ---
HISTORY: r/o obs COMPARISON: No prior. FINDINGS: BOWEL: Normal. No obstruction. No free air. BONES: Normal. OTHER FINDINGS: None. IMPRESSION: No active disease.
--- NOTE | 2017-06-18 16:30 | RAD ---
HISTORY: positive blood culture COMPARISON: No prior. TECHNIQUE: Chest PA and lateral FINDINGS: LUNGS: No active pulmonary disease. PLEURA: No significant pleural effusion identified. No pneumothorax apparent. CARDIOVASCULAR: Normal. OSSEOUS STRUCTURES: No significant abnormalities. VISUALIZED UPPER ABDOMEN: Normal. OTHER FINDINGS: None. IMPRESSION: No active disease.
--- NOTE | 2017-06-19 01:53 | PN ---
DATE: 06/18/2017 SUBJECTIVE: The patient is seen in room 370, bed 2. The patient is out to bed to chair. The patient underwent laparoscopic appendectomy without any complication. The patient tolerated surgery. The patient postoperative care was reviewed. Overnight nurses notes were reviewed. The patient had complained of pain per which the patient required parenteral analgesics. The patient still complains of abdominal pain and some abdominal distention. The patient denies any bowel movement, denies any flatus. The patient does complain of abdominal distention and abdominal pain. PHYSICAL EXAMINATION VITAL SIGNS: T-max afebrile, heart rate in mid 80s, respiration 18-22, blood pressure systolic 120s-130s, diastolic 80s, O2 sat is mid to high 90s. GENERAL: The patient is seen standing up and sitting up in the chair and the patient was asked to lie down in the bed. HEAD: Normocephalic and atraumatic. HEENT: Shows pink conjunctivae. Anicteric sclerae. No oropharyngeal lesion. NECK: No neck rigidity. CHEST: Symmetrical. Occasional rhonchi noted. CARDIOPULMONARY: S1 and S2. ABDOMEN: Protuberant, distended, decreased bowel sounds. Positive diffuse voluntary guarding noted. Positive Band-Aid noted. Positive surgical scar of the laparoscopic appendectomy noted. Positive tenderness noted in the infraumbilical area and periumbilical area. GENITALIA: Male. RECTAL: Deferred. EXTREMITIES: Shows no pitting, no calf tenderness or no Homans' signs. MUSCULOSKELETAL: Elevated body mass index for age and height. DIAGNOSTIC DATA: Reviewed. WBC count is still elevated, but decreased from yesterday. Chemistries and lipase were reviewed. ASSESSMENT AND PLAN: 1. Acute appendicitis. 2. Status post laparoscopic cholecystectomy. 3. Gram-positive cocci, questionable bacteremia versus sepsis. 4. Postoperative abdominal distention. 5. Leukocytosis with granulocytosis. 6. Morbid obesity. 7. History of hypertension, history of poor compliance, history of questionable dyslipidemia, history of prediabetes, history of hypovitaminosis D, history of obesity, history of cervical spine degenerative disc disease, history of questionable cervical radiculopathy. 8. Abdominal pain and tenderness and guarding. 9. Abdominal distention, etiology is examined. 1. Acute early appendicitis with abdominal pain and nausea, vomiting. 2. Morbid obesity. 3. History of poor compliance. 4. Hypertension. 5. Questionable systemic inflammatory response syndrome. 6. Leukocytosis. 7. Granulocytosis. 8. Hyperglycemia. 9. Fatty infiltration of the liver and hepatic steatosis. 10. Non-obstructing left nephrolithiasis 6 mm. PLAN: At this time, the patient has been ordered repeat blood cultures. The patient would be continued on IV fluid, IV antibiotics, parenteral analgesics. The patient diet will be advanced. The patient would be continued on Ancef and Flagyl. The patient will give vancomycin 1 g 1 dose stat. Repeat blood cultures x2 sets ordered. The patient's fever curve will be monitored. The patient's vital signs and hemodynamic status will be monitored. Repeat lab work has been ordered. The patient will be continued on the diet which is advanced by the surgery. If he is able to tolerate the diet and the patient does not spike fever and if the white count trend downwards and if the patient blood cultures are negative for any significant pathogen and bacteria, the patient will be considered for discharge soon. The patient will be continued on GI and DVT prophylaxis. The patient will be continued on parenteral analgesics. The patient will be continued on IV antibiotics. The patient will be continued on Dilaudid. The patient will be continued on antiemetic. The patient has bee updated about his condition. The patient will be ordered a chest x-ray and obstructive series. At present, the patient's above diagnostic date is pending, which will be reviewed and the patient further management will be dependent upon the patient's clinical condition, hemodynamic status and as per the patient's response to therapeutic intervention and as per the patient's diagnostic test results and as per recommendations by surgery and other physicians involved in the care of the patient. Dictated and electronically signed, not read. Micah Cox MD [facility]
[2017-06-19 05:33] LABS: ADD MANUAL DIFF? NO
[2017-06-19] MEDS: ceFAZolin 1 gm in NS 1 GM/100 ML BAG IVPB SCH (05:33)
[2017-06-19] MEDS: metroNIDAZOLE IV 500 mg in 100 ML IVPB SCH ×3 (05:34→23:01)
[2017-06-19] MEDS: Pantoprazole 40 mg EC Tab PO SCH ×2 (05:35→17:12)
[2017-06-19 05:46] LABS: BASO # 0.02 K/mm3 (0.0-2.0); BASO % 0.2 % (0.0-3.0); EOS # 0.1 (0.0-0.7); EOS % 1.3 % (1.5-5.0); GRAN # 5.44 (1.4-6.5); GRAN % 49.8 % (50.0-68.0); HEMATOCRIT 38.5 % (42.0-52.0); LYMPH # 4.3 (1.2-3.4); LYMPH % 39.3 % (22.0-35.0); MEAN CELL VOLUME 85.9 fl (80.0-105.0); MEAN CORPUSCULAR HEMOGLOBIN 28.8 pg (25.0-35.0); MEAN CORPUSCULAR HGB CONC 33.5 g/dl (31.0-37.0); MEAN PLATELET VOLUME 11.1 fl (7.0-11.0); MONO % 9.4 % (1.0-6.0); PLATELET COUNT 276 10^3/uL (120.0-450.0); RED CELL DISTRIBUTION WIDTH 12.7 % (11.5-14.5); WHITE BLOOD COUNT 10.9 10^3/ul (4.5-11.0)
[2017-06-19] MEDS ORDERED: Pantoprazole 40 mg EC Tab PO SCH (06:00)
[2017-06-19 06:16] LABS: ALB/GLOB RATIO 1.3 (1.1-1.8); ALKALINE PHOSPHATASE 76 U/L (38-133); ALT/SGPT 35 U/L (7-56); AST/SGOT 36 U/L (15-59); BILIRUBIN,DIRECT 0.3 mg/dL (0.0-0.4); BILIRUBIN,TOTAL 0.6 mg/dL (0.2-1.3); BLOOD UREA NITROGEN 7 mg/dL (7-21); CALCIUM 8.6 mg/dL (8.4-10.5); CARBON DIOXIDE 28 mmol/L (21-33); CHLORIDE 101 mmol/L (95-110); GFR AFRICAN-AMERICAN > 60; GLUCOSE,RANDOM 94 mg/dL (70-110); MAGNESIUM 2.1 mg/dL (1.7-2.2); POTASSIUM 3.9 mmol/L (3.6-5.0); SODIUM 138 mmol/L (132-148)
--- NOTE | 2017-06-19 07:08 | CP.PCM.PN ---
<Jenna Morgan - Last Filed: 06/19/17 11:03> Subjective - Date & Time of Evaluation Date of Evaluation: 06/19/17 Time of Evaluation: 06:30 - Subjective Subjective: Internal medicine progress note for Dr. Hussein Morgan, PGY-1 Pt S & E at bedside. Pt reports improved pain control, tolerating diet, voiding freely, ambulating, admits to flatus. Denies N/V/F/C, SOB, CP. Using IS. Objective - Vital Signs/Intake and Output Vital Signs (last 24 hours): Temp Pulse Resp BP Pulse Ox 99.1 F 79 20 134/92 H 98 06/18/17 15:56 06/18/17 15:56 06/18/17 15:56 06/18/17 15:56 06/18/17 15:56 Intake and Output: 06/19/17 06/19/17 06:59 18:59 Intake Total 240 Balance 240 - Medications Medications: Current Medications Acetaminophen (Tylenol 325mg Tab) 650 mg PO Q6H PRN PRN Reason: Fever >100.4 F Cholecalciferol (Vitamin D) 2,000 iu PO DAILY JOSE Enoxaparin Sodium (Lovenox) 40 mg SC DAILY JOSE PRN Reason: Protocol Last Admin: 06/18/17 09:36 Dose: 40 mg Hydromorphone HCl (Dilaudid) 0.5 mg IVP Q4H PRN PRN Reason: Pain, severe (8-10) Last Admin: 06/19/17 00:27 Dose: 0.5 mg Metronidazole (Flagyl) 500 mg in 100 mls @ 100 mls/hr IVPB Q8 [facility] Stop: 06/24/17 22:01 Last Admin: 06/19/17 05:34 Dose: 100 mls/hr Cefazolin Sodium (Ancef 1gm In Ns) 1 gm in 100 mls @ 100 mls/hr IVPB Q8 [facility] Stop: 06/24/17 22:01 Last Admin: 06/19/17 05:33 Dose: 100 mls/hr Ondansetron HCl (Zofran Inj) 4 mg IVP Q6H PRN PRN Reason: Nausea/Vomiting Pantoprazole Sodium (Protonix Ec Tab) 40 mg PO 0600,1600 [facility] Last Admin: 06/19/17 05:35 Dose: 40 mg Tramadol HCl (Ultram) 50 mg PO TID PRN PRN Reason: Pain, moderate (4-7) Last Admin: 06/18/17 21:29 Dose: 50 mg - Labs Labs: 06/19/17 04:30 06/19/17 04:30 PT 11.1 Seconds (9.9-11.8) 06/17/17 12:00 INR 1.03 (0.93-1.08) 06/17/17 12:00 APTT 26.1 Seconds (23.7-30.8) 06/17/17 12:00 - Constitutional Appears: Non-toxic, No Acute Distress - Head Exam Head Exam: ATRAUMATIC, NORMAL INSPECTION, NORMOCEPHALIC - Eye Exam Eye Exam: EOMI, Normal appearance - ENT Exam ENT Exam: Mucous Membranes Moist, Normal Exam - Neck Exam Neck Exam: Full ROM, Normal Inspection - Respiratory Exam Respiratory Exam: Clear to Ausculation Bilateral, NORMAL BREATHING PATTERN - Cardiovascular Exam Cardiovascular Exam: REGULAR RHYTHM - GI/Abdominal Exam GI & Abdominal Exam: Soft, Tenderness (minimal, over surgical incisions), Normal Bowel Sounds. absent: Distended (obese), Firm, Guarding, Rigid - Extremities Exam Extremities Exam: Normal Inspection. absent: Pedal Edema, Tenderness - Neurological Exam Neurological Exam: Alert, Awake, CN II-XII Intact, Oriented x3 - Psychiatric Exam Psychiatric exam: Normal Affect, Normal Mood - Skin Skin Exam: Dry, Intact, Normal Color, Warm Assessment and Plan (1) S/P appendectomy Status: Acute - Assessment and Plan (Free Text) Assessment: 47YO M w/PMH, Vit D def, Obesity POD#2 s/p appendectomy, continues to do well post op Plan: Acute appendicitis POD#2 s/p appendectomy Afebrile Leukocytosis resolved Reg diet Zofran PRN pain mgmt Cont Flagyl, Ancef Cont Tylenol prn fever Blood cx pos for G+ cocci in clusters in aerobic bottle only, 2nd blood cx pos for G+ cocci in clusters in anaerobic bottle only CXR neg Obstructive series neg FU Repeat Blood cxr FU CT ab w/PO, IV cont Re-started IVF 2/2 poor oral intake ID following Hx of HTN BP WNL Not on HTN meds at home Continue to monitor Hx of Vit D def Vit D GI/DVT ppx Protonix Lovenox SCDs while in bed Ambulate Dispo Pt may shower DW attending Cathy, PGY-1 <KennyMicah U - Last Filed: 07/22/17 20:55> Objective - Vital Signs/Intake and Output Vital Signs (last 24 hours): Temp Pulse Resp BP Pulse Ox 98.7 F 75 18 146/98 H 96 06/21/17 06:00 06/21/17 06:00 06/21/17 06:00 06/21/17 06:00 06/21/17 06:00 - Labs Labs: 06/21/17 06:30 06/21/17 06:30 PT 11.1 Seconds (9.9-11.8) 06/17/17 12:00 INR 1.03 (0.93-1.08) 06/17/17 12:00 APTT 26.1 Seconds (23.7-30.8) 06/17/17 12:00 Assessment and Plan - Assessment and Plan (Free Text) Assessment: A/P S/P APPENDECTOMY LEUCOCYTOSIS ANEMIA HYPOKALEMIA HYPOVITAMINOSIS-D SUB DIAPHRAGMATIC MINNIMAL POSTOPERATIVE FREE AIR FATTY LIVER/HEPATIC STEATOSIS. HYPERTENSION. PLAN PER MAR SX/ID FOLLOW UP Attending/Attestation - Attestation I have personally seen and examined this patient.: Yes I have fully participated in the care of the patient.: Yes I have reviewed all pertinent clinical information, including history, physical exam and plan: Yes
--- NOTE | 2017-06-19 08:03 | CP.PCM.PN ---
Subjective - Date & Time of Evaluation Date of Evaluation: 06/19/17 Time of Evaluation: 07:15 - Subjective Subjective: General Surgery Progress Note: Dr. Doherty 47 yo male s/p laparoscopic appendectomy POD #2. Pt seen & evaluated at bedside , afebrile overnight, and able to pass flatus this morning. Has not had a BM since surgery and admits to discomfort d/t constipation. Tolerating regular diet well. Admits to diffuse abdominal tenderness that is continuing to improve post-OP. Patient denies fever, chills, nausea, vomiting, diarrhea; admits flatus , abdominal tenderness. Objective - Vital Signs/Intake and Output Vital Signs (last 24 hours): Temp Pulse Resp BP Pulse Ox 99.1 F 79 20 134/92 H 98 06/18/17 15:56 06/18/17 15:56 06/18/17 15:56 06/18/17 15:56 06/18/17 15:56 Intake and Output: 06/19/17 06/19/17 06:59 18:59 Intake Total 240 Balance 240 - Medications Medications: Current Medications Acetaminophen (Tylenol 325mg Tab) 650 mg PO Q6H PRN PRN Reason: Fever >100.4 F Cholecalciferol (Vitamin D) 2,000 iu PO DAILY JOSE Enoxaparin Sodium (Lovenox) 40 mg SC DAILY JOSE PRN Reason: Protocol Last Admin: 06/18/17 09:36 Dose: 40 mg Hydromorphone HCl (Dilaudid) 0.5 mg IVP Q4H PRN PRN Reason: Pain, severe (8-10) Last Admin: 06/19/17 00:27 Dose: 0.5 mg Metronidazole (Flagyl) 500 mg in 100 mls @ 100 mls/hr IVPB Q8 [facility] Stop: 06/24/17 22:01 Last Admin: 06/19/17 05:34 Dose: 100 mls/hr Cefazolin Sodium (Ancef 1gm In Ns) 1 gm in 100 mls @ 100 mls/hr IVPB Q8 [facility] Stop: 06/24/17 22:01 Last Admin: 06/19/17 05:33 Dose: 100 mls/hr Vancomycin HCl (Vancomycin 1gm) 1 gm in 250 mls @ 167 mls/hr IVPB Q12H JOSE PRN Reason: Protocol Stop: 06/23/17 21:30 Ondansetron HCl (Zofran Inj) 4 mg IVP Q6H PRN PRN Reason: Nausea/Vomiting Pantoprazole Sodium (Protonix Ec Tab) 40 mg PO 0600,1600 JOSE Last Admin: 06/19/17 05:35 Dose: 40 mg Tramadol HCl (Ultram) 50 mg PO TID PRN PRN Reason: Pain, moderate (4-7) Last Admin: 06/18/17 21:29 Dose: 50 mg - Labs Labs: 06/19/17 04:30 06/19/17 04:30 PT 11.1 Seconds (9.9-11.8) 06/17/17 12:00 INR 1.03 (0.93-1.08) 06/17/17 12:00 APTT 26.1 Seconds (23.7-30.8) 06/17/17 12:00 - Constitutional Appears: Non-toxic, No Acute Distress - Head Exam Head Exam: ATRAUMATIC, NORMOCEPHALIC - Eye Exam Eye Exam: EOMI, Normal appearance - ENT Exam ENT Exam: Mucous Membranes Moist - Respiratory Exam Respiratory Exam: NORMAL BREATHING PATTERN. absent: Accessory Muscle Use - Cardiovascular Exam Cardiovascular Exam: REGULAR RHYTHM. absent: Bradycardia, Tachycardia - GI/Abdominal Exam GI & Abdominal Exam: Soft, Tenderness (ttp around incision sites, dressings CDI , incisional sites without erythema) - Extremities Exam Extremities Exam: Full ROM, Normal Inspection - Neurological Exam Neurological Exam: Alert, Awake, Normal Gait, Oriented x3 - Psychiatric Exam Psychiatric exam: Normal Affect, Normal Mood - Skin Skin Exam: Dry, Intact, Normal Color, Warm Assessment and Plan - Assessment and Plan (Free Text) Assessment: 47 yo male, with PMH of hypertension, obesity & vitamin D deficiency, s/p laparoscopic appendectomy POD#2. Plan: 1. follow-up blood cultures- consider d/c with negative repeat cultures 2. continue IV abx: cefazolin & metronidazole 3. pain control PRN with tramadol & dilaudid 4. continue cholecalciferol for Vitamin D deficiency 5. GI prophylaxis with protonix 6. CVT prophylaxis with lovenox 7. continue medical mgmt per primary team Will be discussed with Dr. Doherty.
[2017-06-19] MEDS: Vancomycin 1gm in NS 250ml 1 GM/250 ML BAG IVPB SCH ×2 (09:08→21:31)
[2017-06-19] MEDS: Enoxaparin 40 mg Syringe SC SCH (09:09)
[2017-06-19] MEDS: cefTRIAXone 1 gm 1 GM/100 ML BAG IVPB SCH (10:21)
[2017-06-19] MEDS ORDERED: Barium Sulfate Susp 2.1% w/v, 2.0% w/w 450 mL Bottle PO ONE (10:55)
--- NOTE | 2017-06-19 14:29 | CT ---
PROCEDURE: CT Abdomen and Pelvis with contrast HISTORY: ab pain COMPARISON: 06/17/2017 TECHNIQUE: Contrast dose: 150 cc of Omni 350 Radiation dose: Total exam DLP = 1780 mGy-cm. This CT exam was performed using one or more of the following dose reduction techniques: Automated exposure control, adjustment of the mA and/or kV according to patient size, and/or use of iterative reconstruction technique. FINDINGS: LOWER THORAX: Minimal postoperative free air seen beneath the diaphragm LIVER: Unremarkable. No gross lesion or ductal dilatation. Mild fatty infiltration GALLBLADDER AND BILE DUCTS: Unremarkable. PANCREAS: Unremarkable. No gross lesion or ductal dilatation. SPLEEN: Unremarkable. ADRENALS: Unremarkable. No mass. KIDNEYS AND URETERS: Unremarkable. No hydronephrosis. No solid mass. VASCULATURE: Unremarkable. No aortic aneurysm. BOWEL: Unremarkable. No obstruction. No gross mural thickening. APPENDIX: Recently removed. No evidence of appendiceal abscess. PERITONEUM: Unremarkable. No free fluid. No free air. LYMPH NODES: Unremarkable. No enlarged lymph nodes. BLADDER: Unremarkable. REPRODUCTIVE: Unremarkable. BONES: No acute fracture. OTHER FINDINGS: None. IMPRESSION: No evidence of appendiceal abscess or postoperative ileus. No acute findings
[2017-06-19] MEDS: Lactated Ringer's 1,000 ML IV SCH (14:54)
--- NOTE | 2017-06-19 15:26 | CP.PCM.CON ---
History of Present Illness - History of Present Illness History of Present Illness: 47 year old male with PMH of morbid obesity with BMI 42, vitamin D deficiency, HTN, was admitted in [facility] because of abdominal pain and was found to have acute appendicitis and he underwent appendectomy. He has been doing well and is currently without abdominal pain, no nausea or vomiting, no fever or chills, no headache or dizziness, no chest pain, no SOB, no headache or dizziness, no diarrhea, no dysuria. Blood cx were done on admission which are now showing gram positive cocci in clusters. Infectious Diseases consult is requested to further evaluate and manage. Patient has no indwelling hardware, denies use of IV drugs. Review of Systems - Review of Systems All systems: reviewed and no additional remarkable complaints except (as per HPI ) Past Patient History - Infectious Disease Hx of Infectious Diseases: None - Tetanus Immunizations Tetanus Immunization: Unknown - Past Social History Smoking Status: Former Smoker - CARDIAC Hx Cardiac Disorders: Yes Hx Heart Murmur: Yes ( A CHILD) Hx Hypertension: Yes (controlled no meds) - PULMONARY Hx Respiratory Disorders: No (SMOKE H/O, vapes daily) - NEUROLOGICAL Hx Neurological Disorder: No - HEENT Hx HEENT Problems: No (WEARS RX GLASSES) - RENAL Hx Chronic Kidney Disease: No - ENDOCRINE/METABOLIC Hx Endocrine Disorders: No - HEMATOLOGICAL/ONCOLOGICAL Hx Blood Disorders: No - INTEGUMENTARY Other/Comment: 3 abd bandaids post op dry and intact, recent red rash to face - MUSCULOSKELETAL/RHEUMATOLOGICAL Hx Musculoskeletal Disorders: Yes (2015 rhabdomylysis) Hx Falls: No - GASTROINTESTINAL Hx Gastrointestinal Disorders: (GASTRITIS, obese) - GENITOURINARY/GYNECOLOGICAL Hx Genitourinary Disorders: No - PSYCHIATRIC Hx Psychophysiologic Disorder: No Hx Substance Use: No - SURGICAL HISTORY Hx Surgeries: Yes Other/Comment: right hand sx 2nd finger - ANESTHESIA Hx Anesthesia Reactions: No Hx Malignant Hyperthermia: No Meds Home Medications: Home Medication List Medication Instructions Recorded Confirmed Type Ciprofloxacin [Cipro] 500 mg PO BID #14 tab 06/18/17 Rx Ibuprofen [Motrin Tab] 600 mg PO Q6H PRN tab 06/18/17 Rx metroNIDAZOLE [Flagyl] 500 mg PO BID #14 tab 06/18/17 Rx Allergies/Adverse Reactions: Allergies Allergy/AdvReac Type Severity Reaction Status Date / Time No Known Allergies Allergy Verified 06/17/17 06:52 - Medications Medications: Current Medications Acetaminophen (Tylenol 325mg Tab) 650 mg PO Q6H PRN PRN Reason: Fever >100.4 F Cholecalciferol (Vitamin D) 2,000 iu PO DAILY [facility] Last Admin: 06/19/17 09:09 Dose: 2,000 iu Enoxaparin Sodium (Lovenox) 40 mg SC DAILY [facility] PRN Reason: Protocol Last Admin: 06/19/17 09:09 Dose: 40 mg Hydromorphone HCl (Dilaudid) 0.5 mg IVP Q4H PRN PRN Reason: Pain, severe (8-10) Last Admin: 06/19/17 00:27 Dose: 0.5 mg Metronidazole (Flagyl) 500 mg in 100 mls @ 100 mls/hr IVPB Q8 [facility] Stop: 06/24/17 22:01 Last Admin: 06/19/17 05:34 Dose: 100 mls/hr Cefazolin Sodium (Ancef 1gm In Ns) 1 gm in 100 mls @ 100 mls/hr IVPB Q8 [facility] Stop: 06/24/17 22:01 Last Admin: 06/19/17 05:33 Dose: 100 mls/hr Vancomycin HCl (Vancomycin 1gm) 1 gm in 250 mls @ 167 mls/hr IVPB Q12H [facility] PRN Reason: Protocol Stop: 06/23/17 21:30 Last Admin: 06/19/17 09:08 Dose: 167 mls/hr Ondansetron HCl (Zofran Inj) 4 mg IVP Q6H PRN PRN Reason: Nausea/Vomiting Pantoprazole Sodium (Protonix Ec Tab) 40 mg PO 0600,1600 [facility] Last Admin: 06/19/17 05:35 Dose: 40 mg Tramadol HCl (Ultram) 50 mg PO TID PRN PRN Reason: Pain, moderate (4-7) Last Admin: 06/18/17 21:29 Dose: 50 mg Physical Exam - Constitutional Appears: Non-toxic, No Acute Distress - Head Exam Head Exam: NORMAL INSPECTION - ENT Exam ENT Exam: Mucous Membranes Moist - Neck Exam Neck exam: Negative for: Lymphadenopathy, Meningismus - Respiratory Exam Respiratory Exam: Decreased Breath Sounds - Cardiovascular Exam Cardiovascular Exam: +S1, +S2 - GI/Abdominal Exam GI & Abdominal Exam: Soft. absent: Tenderness Results - Vital Signs Recent Vital Signs: Last Vital Signs Temp 98.7 F 06/19/17 08:21 Pulse 70 06/19/17 08:21 Resp 20 06/19/17 08:21 BP 152/98 H 06/19/17 08:21 Pulse Ox 95 06/19/17 08:21 - Labs Result Diagrams: 06/19/17 04:30 06/19/17 04:30 Labs: Laboratory Results - last 24 hr 06/18/17 06/18/17 06/19/17 07:00 11:40 04:30 WBC 10.9 RBC 4.48 Hgb 12.9 L Hct 38.5 L MCV 85.9 MCH 28.8 MCHC 33.5 RDW 12.7 Plt Count 276 MPV 11.1 H Gran % 49.8 L Lymph % (Auto) 39.3 H [place] % (Auto) 9.4 H Eos % (Auto) 1.3 L Baso % (Auto) 0.2 Gran # 5.44 Lymph # 4.3 H [place] # 1.0 H Eos # 0.1 Baso # 0.02 Sodium Potassium Chloride Carbon Dioxide Anion Gap BUN Creatinine Est GFR ( Amer) Est GFR (Non-Af Amer) Random Glucose Lactic Acid 1.3 Calcium Magnesium Total Bilirubin Direct Bilirubin AST ALT Alkaline Phosphatase Total Protein Albumin Globulin Albumin/Globulin Ratio 25-OH Vitamin D Total 18.8 L 06/19/17 04:30 WBC RBC Hgb Hct MCV MCH MCHC RDW Plt Count MPV Gran % Lymph % (Auto) [place] % (Auto) Eos % (Auto) Baso % (Auto) Gran # Lymph # [place] # Eos # Baso # Sodium 138 Potassium 3.9 Chloride 101 Carbon Dioxide 28 Anion Gap 13 BUN 7 Creatinine 0.8 Est GFR ( Amer) > 60 Est GFR (Non-Af Amer) > 60 Random Glucose 94 Lactic Acid Calcium 8.6 Magnesium 2.1 Total Bilirubin 0.6 Direct Bilirubin 0.3 AST 36 ALT 35 Alkaline Phosphatase 76 Total Protein 7.0 Albumin 4.0 Globulin 3.0 Albumin/Globulin Ratio 1.3 25-OH Vitamin D Total Assessment & Plan - Assessment and Plan (Free Text) Plan: Assessment Acute appendecitis S/P appendectomy POD #2 Coagulase negative staph in blood cx, R/O contamination morbid obesity with BMI 42 vitamin D deficiency HTN Plan Continue Rocephin and Flagyl; patient has been started on Vancomycin IV pending repeat blood cx results; follow up 2D echo as well Patient does not have indwelling hardware will monitor clinically discussed with Dr. Cox
--- NOTE | 2017-06-19 17:14 | CARD ---
APPROVED REPORT EXAM: Two-dimensional and M-mode echocardiogram with Doppler and color Doppler. INDICATION Infection:Rule out subacute bacterial endocarditis 2D DIMENSIONS IVSd1.1 (0.7-1.1cm)LVDd5.5 (3.9-5.9cm) PWd1.2 (0.7-1.1cm)LVDs3.7 (2.5-4.0cm) FS (%) 32.8 %LVEF (%)60.7 (>50%) M-Mode DIMENSIONS Aortic Root3.90 (2.2-3.7cm)Aortic Cusp Exc.2.10 (1.5-2.0cm) Aortic Valve AoV Peak Aiktzugz180.0cm/Marilu Peak GR.7mmHg Mitral Valve MV E Ykuswtiy38.6cm/sMV A Afvtjshc75.6cm/sE/A ratio1.4 TDI Lateral E' Peak V10.70cm/sMedial E' Peak V9.16cm/sE/Lateral E'8.8 E/Medial E'10.3 Pulmonary Valve PV Peak Oskzmxnk54.0cm/sPV Peak Grad.3mmHg Tricuspid Valve TR Peak [id number]/sRAP [id number] Peak Gr.32mmHg [id number] LEFT VENTRICLE The left ventricle is normal size. There is normal left ventricular wall thickness. The left ventricular function is normal. There is normal LV segmental wall motion. The left ventricular diastolic function is normal. No left ventricle thrombus noted on this study. There is no ventricular septal defect visualized. There is no left ventricular aneurysm. RIGHT VENTRICLE The right ventricle is normal size. There is normal right ventricular wall thickness. The right ventricular systolic function is normal. ATRIA The left atrium size is normal. The right atrium size is normal. The interatrial septum is intact with no evidence for an atrial septal defect. AORTIC VALVE The aortic valve is thickened but opens well. There is trace aortic regurgitation. There is no aortic valvular stenosis. There is no aortic valvular vegetation. MITRAL VALVE The mitral valve is thickened but opens well. Mitral annular calcification is mild. Mitral regurgitation is mild. There is no mitral valve stenosis. There is no evidence of mitral valve prolapse. TRICUSPID VALVE The tricuspid valve leaflets are thickened , but open well. There is mild tricuspid regurgitation.[id number] mmof hg. There is no tricuspid valve stenosis. There is no tricuspid valve prolapse or vegetation. PULMONIC VALVE The pulmonic valve is borderline thickened. There is trace to mild pulmonic valvular regurgitation. There is no pulmonic valvular stenosis. GREAT VESSELS The aortic root is normal in size. The ascending aorta is normal in size. The pulmonary artery is normal. The IVC is normal in size and collapses >50% with inspiration. PERICARDIAL EFFUSION There is no pleural effusion. There is no pericardial effusion. <Conclusion> Normal chamber Size. Ef-55-60% Trace AR Mild MR/TR [id number]_42 mmof Hg. No vegetation or thrombus noted.
[2017-06-20] MEDS: metroNIDAZOLE IV 500 mg in 100 ML IVPB SCH ×3 (06:35→22:47)
[2017-06-20] MEDS: Pantoprazole 40 mg EC Tab PO SCH ×2 (06:35→17:11)
[2017-06-20] MEDS: Lactated Ringer's 1,000 ML IV SCH ×2 (06:35→22:49)
[2017-06-20 07:26] LABS: ALB/GLOB RATIO 1.4 (1.1-1.8); ALKALINE PHOSPHATASE 81 U/L (38-133); ALT/SGPT 44 U/L (7-56); AST/SGOT 36 U/L (15-59); BILIRUBIN,DIRECT 0.1 mg/dL (0.0-0.4); BILIRUBIN,TOTAL 0.5 mg/dL (0.2-1.3); BLOOD UREA NITROGEN 8 mg/dL (7-21); CALCIUM 8.8 mg/dL (8.4-10.5); CARBON DIOXIDE 29 mmol/L (21-33); CHLORIDE 102 mmol/L (98-107); GFR AFRICAN-AMERICAN > 60; GLUCOSE,RANDOM 89 mg/dL (70-110); MAGNESIUM 2.1 mg/dL (1.7-2.2); POTASSIUM 3.4 mmol/L (3.6-5.0); SODIUM 140 mmol/L (132-148); TOTAL PROTEIN 6.7 g/dL (5.8-8.3)
[2017-06-20 07:35] LABS: BASO # 0.02 K/mm3 (0.0-2.0); BASO % 0.2 % (0.0-3.0); EOS # 0.2 (0.0-0.7); EOS % 1.6 % (1.5-5.0); GRAN # 5.79 (1.4-6.5); GRAN % 57.2 % (50.0-68.0); HEMATOCRIT 38.7 % (42.0-52.0); LYMPH # 3.2 (1.2-3.4); LYMPH % 31.9 % (22.0-35.0); MEAN CELL VOLUME 85.1 fl (80.0-105.0); MEAN CORPUSCULAR HEMOGLOBIN 28.8 pg (25.0-35.0); MEAN CORPUSCULAR HGB CONC 33.9 g/dl (31.0-37.0); MEAN PLATELET VOLUME 11.3 fl (7.0-11.0); MONO # 0.9 (0.1-0.6); MONO % 9.1 % (1.0-6.0); RED CELL DISTRIBUTION WIDTH 12.4 % (11.5-14.5); WHITE BLOOD COUNT 10.1 10^3/ul (4.5-11.0)
--- NOTE | 2017-06-20 08:02 | CP.PCM.PN ---
<Jenna Morgan - Last Filed: 06/20/17 08:07> Subjective - Date & Time of Evaluation Date of Evaluation: 06/20/17 Time of Evaluation: 07:30 - Subjective Subjective: General Surgery Progress Note for Dr. Doherty-Jenna Morgan, PGY-1 Pt S & E at bedside. Pt reports passing flatus, no BM since surgery, baseline BM pattern at home - Q3days. Voiding w/o difficulty. Admits to minimal abdominal tenderness around incision sites - improving. Denies N/V/F/C, vomiting, diarrhea. Objective - Vital Signs/Intake and Output Vital Signs (last 24 hours): Temp Pulse Resp BP Pulse Ox 98.9 F 66 20 135/90 98 06/20/17 06:00 06/20/17 06:00 06/20/17 06:00 06/20/17 06:00 06/20/17 06:00 Intake and Output: 06/20/17 06/20/17 06:59 18:59 Intake Total 540 2020 Balance 540 2020 - Medications Medications: Current Medications Acetaminophen (Tylenol 325mg Tab) 650 mg PO Q6H PRN PRN Reason: Fever >100.4 F Cholecalciferol (Vitamin D) 2,000 iu PO DAILY [facility] Last Admin: 06/19/17 09:09 Dose: 2,000 iu Enoxaparin Sodium (Lovenox) 40 mg SC DAILY [facility] PRN Reason: Protocol Last Admin: 06/19/17 09:09 Dose: 40 mg Hydromorphone HCl (Dilaudid) 0.5 mg IVP Q4H PRN PRN Reason: Pain, severe (8-10) Last Admin: 06/19/17 00:27 Dose: 0.5 mg Metronidazole (Flagyl) 500 mg in 100 mls @ 100 mls/hr IVPB Q8 [facility] Stop: 06/24/17 22:01 Last Admin: 06/20/17 06:35 Dose: 100 mls/hr Vancomycin HCl (Vancomycin 1gm) 1 gm in 250 mls @ 167 mls/hr IVPB Q12H [facility] PRN Reason: Protocol Stop: 06/23/17 21:30 Last Admin: 06/19/17 21:31 Dose: 167 mls/hr Ceftriaxone Sodium (Rocephin 1 Gram Ivpb) 1 gm in 100 mls @ 100 mls/hr IVPB DAILY [facility] PRN Reason: Protocol Last Admin: 06/19/17 10:21 Dose: 100 mls/hr Lactated Ringer's (Lactated Ringer's) 1,000 mls @ 60 mls/hr IV .[id number] [facility] Last Admin: 06/20/17 06:35 Dose: 60 mls/hr Ondansetron HCl (Zofran Inj) 4 mg IVP Q6H PRN PRN Reason: Nausea/Vomiting Pantoprazole Sodium (Protonix Ec Tab) 40 mg PO 0600,1600 [facility] Last Admin: 06/20/17 06:35 Dose: 40 mg Tramadol HCl (Ultram) 50 mg PO TID PRN PRN Reason: Pain, moderate (4-7) Last Admin: 06/18/17 21:29 Dose: 50 mg - Labs Labs: 06/20/17 06:30 06/20/17 06:30 PT 11.1 Seconds (9.9-11.8) 06/17/17 12:00 INR 1.03 (0.93-1.08) 06/17/17 12:00 APTT 26.1 Seconds (23.7-30.8) 06/17/17 12:00 - Constitutional Appears: Non-toxic, No Acute Distress - Head Exam Head Exam: ATRAUMATIC, NORMOCEPHALIC - Eye Exam Eye Exam: EOMI. absent: Conjunctival injection - ENT Exam ENT Exam: Mucous Membranes Moist - Neck Exam Neck Exam: Full ROM - Respiratory Exam Respiratory Exam: NORMAL BREATHING PATTERN. absent: Accessory Muscle Use, Respiratory Distress - Cardiovascular Exam Cardiovascular Exam: REGULAR RHYTHM. absent: Bradycardia, Tachycardia - GI/Abdominal Exam GI & Abdominal Exam: Soft, Tenderness (minimally ttp around incision sites; periumbical steri-strips with scant dried sanguinous strike, LLQ lateral incision site with bandaid left in place due to adherence with steri-strips, scant dried sanguinous strike through on medial aspect; LLQ lower steri strips in place with scant dried sanguinous strike through, incisional sites without erythema or fresh drainage, small ecchymoses over periumbilical site). absent: Distended (obese), Firm, Guarding, Rigid - Extremities Exam Extremities Exam: Full ROM, Normal Inspection. absent: Pedal Edema - Neurological Exam Neurological Exam: Alert, Awake, CN II-XII Intact, Oriented x3 - Psychiatric Exam Psychiatric exam: Normal Affect, Normal Mood - Skin Skin Exam: Dry, Intact, Normal Color, Warm Assessment and Plan (1) S/P appendectomy Status: Acute - Assessment and Plan (Free Text) Assessment: 47M w/PMH of HTN, vit D deficiency, & obesity, s/p laparoscopic appendectomy POD #3. Plan: Encourage IS use OOBTC Ambulate Cont pain control Cont GI/DVT ppx Further mgmt as per primary & ID teams Pt stable post op, no complications, ok to d/c home from surgical standpoint Will D/W attending Cathy, PGY-1 <Florencio Doherty - Last Filed: 06/22/17 10:34> Objective - Vital Signs/Intake and Output Vital Signs (last 24 hours): Temp Pulse Resp BP Pulse Ox 98.7 F 75 18 146/98 H 96 06/21/17 06:00 06/21/17 06:00 06/21/17 06:00 06/21/17 06:00 06/21/17 06:00 - Labs Labs: 06/21/17 06:30 06/21/17 06:30 PT 11.1 Seconds (9.9-11.8) 06/17/17 12:00 INR 1.03 (0.93-1.08) 06/17/17 12:00 APTT 26.1 Seconds (23.7-30.8) 06/17/17 12:00 Assessment and Plan - Assessment and Plan (Free Text) Assessment: GRAM POS Cocci-Blood ? contaminant No further recommendations OK for discharge Asael Doherty MD FACS
[2017-06-20] MEDS ORDERED: Potassium Chloride 20 mEq ER Tab PO ONE (08:37)
[2017-06-20] MEDS: Vancomycin 1gm in NS 250ml 1 GM/250 ML BAG IVPB SCH ×2 (09:12→21:08)
[2017-06-20] MEDS: cefTRIAXone 1 gm 1 GM/100 ML BAG IVPB SCH (09:12)
[2017-06-20] MEDS: Enoxaparin 40 mg Syringe SC SCH (09:13)
--- NOTE | 2017-06-20 09:34 | CP.PCM.PN ---
Subjective - Date & Time of Evaluation Date of Evaluation: 06/20/17 Time of Evaluation: 07:30 - Subjective Subjective: Patient is seen this morning. He is doing ok. He does have some abdominal pain. Objective - Vital Signs/Intake and Output Vital Signs (last 24 hours): Temp Pulse Resp BP Pulse Ox 98.9 F 66 20 135/90 98 06/20/17 06:00 06/20/17 06:00 06/20/17 06:00 06/20/17 06:00 06/20/17 06:00 Intake and Output: 06/20/17 06/20/17 06:59 18:59 Intake Total 540 2380 Balance 540 2380 - Medications Medications: Current Medications Acetaminophen (Tylenol 325mg Tab) 650 mg PO Q6H PRN PRN Reason: Fever >100.4 F Cholecalciferol (Vitamin D) 2,000 iu PO DAILY [facility] Last Admin: 06/20/17 09:13 Dose: 2,000 iu Enoxaparin Sodium (Lovenox) 40 mg SC DAILY [facility] PRN Reason: Protocol Last Admin: 06/20/17 09:13 Dose: 40 mg Hydromorphone HCl (Dilaudid) 0.5 mg IVP Q4H PRN PRN Reason: Pain, severe (8-10) Last Admin: 06/19/17 00:27 Dose: 0.5 mg Metronidazole (Flagyl) 500 mg in 100 mls @ 100 mls/hr IVPB Q8 [facility] Stop: 06/24/17 22:01 Last Admin: 06/20/17 06:35 Dose: 100 mls/hr Vancomycin HCl (Vancomycin 1gm) 1 gm in 250 mls @ 167 mls/hr IVPB Q12H [facility] PRN Reason: Protocol Stop: 06/23/17 21:30 Last Admin: 06/20/17 09:12 Dose: 167 mls/hr Ceftriaxone Sodium (Rocephin 1 Gram Ivpb) 1 gm in 100 mls @ 100 mls/hr IVPB DAILY [facility] PRN Reason: Protocol Last Admin: 06/20/17 09:12 Dose: 100 mls/hr Lactated Ringer's (Lactated Ringer's) 1,000 mls @ 60 mls/hr IV .[id number] [facility] Last Admin: 06/20/17 06:35 Dose: 60 mls/hr Potassium Chloride (Potassium Chloride 20 Meq/100 Ml) 20 meq in 100 mls @ 50 mls/hr IVPB ONCE ONE Stop: 06/20/17 10:55 Last Admin: 06/20/17 09:12 Dose: 50 mls/hr Ondansetron HCl (Zofran Inj) 4 mg IVP Q6H PRN PRN Reason: Nausea/Vomiting Pantoprazole Sodium (Protonix Ec Tab) 40 mg PO 0600,1600 [facility] Last Admin: 06/20/17 06:35 Dose: 40 mg Tramadol HCl (Ultram) 50 mg PO TID PRN PRN Reason: Pain, moderate (4-7) Last Admin: 06/18/17 21:29 Dose: 50 mg - Labs Labs: 06/20/17 06:30 06/20/17 06:30 PT 11.1 Seconds (9.9-11.8) 06/17/17 12:00 INR 1.03 (0.93-1.08) 06/17/17 12:00 APTT 26.1 Seconds (23.7-30.8) 06/17/17 12:00 - Constitutional Appears: No Acute Distress - Head Exam Head Exam: ATRAUMATIC, NORMOCEPHALIC - Respiratory Exam Respiratory Exam: Clear to Ausculation Bilateral, NORMAL BREATHING PATTERN - Cardiovascular Exam Cardiovascular Exam: +S1, +S2 - GI/Abdominal Exam GI & Abdominal Exam: Soft Additional comments: s/p lap appendectomy, mild tenderness left side of abdomen - Extremities Exam Extremities Exam: Normal Inspection - Neurological Exam Neurological Exam: Alert, Awake, Oriented x3 Assessment and Plan - Assessment and Plan (Free Text) Assessment: Acute appendicitis s/p appendectomy Sepsis/Bacteremia? HTN Morbid Obesity Plan: Patient is feeling better. White count is normal this morning. Blood culture growing gram positive cocci. Repeat blood cultures negative so far. continue antibiotics as per infectious disease. Patient is currently on IV Rocephin and Flagyl.
[2017-06-20] MEDS ORDERED: POLYETHYLENE GLYCOL 3350 17 GM/Dose PACKET PO ONE (10:10)
[2017-06-20] MEDS ORDERED: Oxycodone/Acetaminophen 5/325 mg Tab PO PRN (12:16)
--- NOTE | 2017-06-20 16:38 | CP.PCM.PCO ---
Physician Communication Note - Physician Communication Note Physician Communication Note: OK for discharge
[2017-06-20 18:26] VITALS: O2SAT 96
--- NOTE | 2017-06-21 03:04 | PN ---
SUBJECTIVE: The patient is in bed, in no acute distress, nontoxic. PHYSICAL EXAMINATION: VITAL SIGNS: Temperature is 98, blood pressure is 130/90, respiratory rate of 20, heart rate of 70. HEENT: Unremarkable. NECK: Supple. LUNGS: Decreased breath sounds. HEART: Normal S1 and S2 ABDOMEN: Soft, nontender. LABORATORY DATA: Reveals a white count of 10,000, hemoglobin of 13, platelets of 287 and BUN of 8, creatinine of 0.8. Urinalysis is noted and microbiology reveals the coag-negative staph. Repeat blood cultures are negative and DrKyle note is reviewed and pathology from the reveals an acute appendicitis and periappendicitis. ASSESSMENT AND PLAN: This is a 47-year-old male with morbid obesity with BMI of 42 and vitamin D deficiency, hypertension, and status post laparoscopic appendectomy, coag-negative staph bacteremia most likely a contamination not requiring therapy, and postop day #3, currently on Rocephin and Flagyl. The patient is moving gas, although as of this morning, he has not had any bowel movements. Dr. Jenna Morgan's note is reviewed and the current recommendation is no further antibiotics post routine appendectomy. Since the appendix did not rupture, we would discontinue the antibiotics. Upon discharge, no further antibiotics necessary. Atul Mckee MD
[2017-06-21] MEDS: metroNIDAZOLE IV 500 mg in 100 ML IVPB SCH (06:57)
[2017-06-21] MEDS: Pantoprazole 40 mg EC Tab PO SCH (06:58)
[2017-06-21 07:07] LABS: ALB/GLOB RATIO 1.3 (1.1-1.8); ALKALINE PHOSPHATASE 80 U/L (38-133); ALT/SGPT 44 U/L (7-56); AST/SGOT 34 U/L (15-59); BILIRUBIN,DIRECT 0.2 mg/dL (0.0-0.4); BILIRUBIN,TOTAL 0.4 mg/dL (0.2-1.3); BLOOD UREA NITROGEN 8 mg/dL (7-21); CALCIUM 8.8 mg/dL (8.4-10.5); CARBON DIOXIDE 27 mmol/L (21-33); CHLORIDE 101 mmol/L (98-107); GFR AFRICAN-AMERICAN > 60; GLUCOSE,RANDOM 102 mg/dL (70-110); MAGNESIUM 2.1 mg/dL (1.7-2.2); POTASSIUM 3.4 mmol/L (3.6-5.0); SODIUM 139 mmol/L (132-148); TOTAL PROTEIN 6.8 g/dL (5.8-8.3)
[2017-06-21 07:12] LABS: BASO # 0.02 K/mm3 (0.0-2.0); BASO % 0.2 % (0.0-3.0); EOS # 0.2 (0.0-0.7); EOS % 1.4 % (1.5-5.0); GRAN # 6.71 (1.4-6.5); GRAN % 61.8 % (50.0-68.0); LYMPH # 3.1 (1.2-3.4); LYMPH % 28.9 % (22.0-35.0); MEAN CORPUSCULAR HEMOGLOBIN 28.3 pg (25.0-35.0); MEAN CORPUSCULAR HGB CONC 33.3 g/dl (31.0-37.0); MEAN PLATELET VOLUME 11.2 fl (7.0-11.0); MONO # 0.8 (0.1-0.6); MONO % 7.7 % (1.0-6.0); RED CELL DISTRIBUTION WIDTH 12.3 % (11.5-14.5); WHITE BLOOD COUNT 10.9 10^3/ul (4.5-11.0)
[2017-06-21 07:25] VITALS: BP 146/98; PULSE 75; RESP 18; TEMP 98.7
[2017-06-21] MEDS: Vancomycin 1gm in NS 250ml 1 GM/250 ML BAG IVPB SCH (08:16)
--- NOTE | 2017-06-21 09:52 | CP.PCM.PN ---
Subjective - Date & Time of Evaluation Date of Evaluation: 06/21/17 Time of Evaluation: 07:35 - Subjective Subjective: Patient is seen this morning. He has some soreness in the abdomen. + bowel movement yesterday. Objective - Vital Signs/Intake and Output Vital Signs (last 24 hours): Temp Pulse Resp BP Pulse Ox 98.7 F 75 18 146/98 H 96 06/21/17 06:00 06/21/17 06:00 06/21/17 06:00 06/21/17 06:00 06/21/17 06:00 Intake and Output: 06/21/17 06/21/17 06:59 18:59 Intake Total 540 1376 Output Total 0 Balance 540 1376 - Medications Medications: Current Medications Acetaminophen (Tylenol 325mg Tab) 650 mg PO Q6H PRN PRN Reason: Fever >100.4 F Cholecalciferol (Vitamin D) 2,000 iu PO DAILY [facility] Last Admin: 06/20/17 09:13 Dose: 2,000 iu Enoxaparin Sodium (Lovenox) 40 mg SC DAILY [facility] PRN Reason: Protocol Last Admin: 06/20/17 09:13 Dose: 40 mg Metronidazole (Flagyl) 500 mg in 100 mls @ 100 mls/hr IVPB Q8 [facility] Stop: 06/24/17 22:01 Last Admin: 06/21/17 06:57 Dose: 100 mls/hr Vancomycin HCl (Vancomycin 1gm) 1 gm in 250 mls @ 167 mls/hr IVPB Q12H [facility] PRN Reason: Protocol Stop: 06/23/17 21:30 Last Admin: 06/21/17 08:16 Dose: Not Given Ceftriaxone Sodium (Rocephin 1 Gram Ivpb) 1 gm in 100 mls @ 100 mls/hr IVPB DAILY [facility] PRN Reason: Protocol Last Admin: 06/20/17 09:12 Dose: 100 mls/hr Lactated Ringer's (Lactated Ringer's) 1,000 mls @ 60 mls/hr IV .[id number] [facility] Last Admin: 06/20/17 22:49 Dose: 60 mls/hr Potassium Chloride (Potassium Chloride 20 Meq/100 Ml) 20 meq in 100 mls @ 50 mls/hr IVPB ONCE ONE Stop: 06/21/17 11:07 Ondansetron HCl (Zofran Inj) 4 mg IVP Q6H PRN PRN Reason: Nausea/Vomiting Oxycodone/Acetaminophen (Percocet 5/325 Mg Tab) 1 tab PO Q6H PRN PRN Reason: Pain, severe (8-10) Stop: 06/23/17 12:17 Pantoprazole Sodium (Protonix Ec Tab) 40 mg PO 0600,1600 [facility] Last Admin: 06/21/17 06:58 Dose: 40 mg Tramadol HCl (Ultram) 50 mg PO TID PRN PRN Reason: Pain, moderate (4-7) Last Admin: 06/18/17 21:29 Dose: 50 mg - Labs Labs: 06/21/17 06:30 06/21/17 06:30 PT 11.1 Seconds (9.9-11.8) 06/17/17 12:00 INR 1.03 (0.93-1.08) 06/17/17 12:00 APTT 26.1 Seconds (23.7-30.8) 06/17/17 12:00 - Constitutional Appears: No Acute Distress - Head Exam Head Exam: ATRAUMATIC, NORMOCEPHALIC - Respiratory Exam Respiratory Exam: Clear to Ausculation Bilateral, NORMAL BREATHING PATTERN - Cardiovascular Exam Cardiovascular Exam: +S1, +S2 - GI/Abdominal Exam GI & Abdominal Exam: Soft, Tenderness Additional comments: mild left sided tenderness - Neurological Exam Neurological Exam: Alert, Awake, Oriented x3 Assessment and Plan - Assessment and Plan (Free Text) Assessment: Acute appendicitis s/p appendectomy Hypokalemia Questionable bacteremia Plan: Patient is feeling better, although he still has some mild tenderness on the left side of the abdomen. He has been cleared by surgery for discharge. Blood culture growing gram positive cocci. Repeat blood culture is negative for 48 hours. Infectious disease note appreciated. Patient will be discharged home. No antibiotics necessary as per infectious disease. Potassium is low, so patient will be given a potassium rider and a prescription for potassium 20 meq daily prior to discharge. Patient has been advised to followup with Dr. Cox in 1-2 weeks.
[2017-06-21] MEDS ORDERED: Potassium Chloride 20 mEq ER Tab PO ONE ×2 (10:20→11:30)
[2017-06-21] MEDS: Enoxaparin 40 mg Syringe SC SCH (10:58)
[2017-06-21] MEDS: cefTRIAXone 1 gm 1 GM/100 ML BAG IVPB SCH (10:58)
--- NOTE | 2017-06-21 21:21 | PN ---
DATE: 06/21/2017 SUBJECTIVE: The patient is in bed, in no acute distress, seen earlier this morning. PHYSICAL EXAMINATION: VITAL SIGNS: Temperature is 98, blood pressure is 140/80, respiratory rate of 16. HEENT: Unremarkable. NECK: Supple. LUNGS: Decreased breath sounds. HEART: Normal S1 and S2 ABDOMEN: Soft, nontender. LABORATORY DATA: Reveals a white count of 10,000, hemoglobin of 13 and chemistry reveals a BUN of 8, creatinine of 0.7. Urinalysis is noted. Microbiology is noted. There is a coag-negative staph in blood. Repeat blood cultures are negative and *------* note from today is reviewed. ASSESSMENT AND PLAN: A 47-year-old male with morbid obesity with BMI of 42 and a vitamin D deficiency, hypertension, status post laparoscopic appendectomy with a coag-negative staph in the blood, most consistently is a contamination not requiring treatment, postop day #4, on Rocephin and Flagyl. Since the appendix is not ruptured, upon discharge no further antibiotics necessary as per current recommendation guidelines. Atul Mckee MD
--- NOTE | 2017-06-22 21:53 | OP ---
PROCEDURE DATE: 06/17/2017 SURGEON: Dr. Doherty. COMPOSITION ROLL MAKER AND CUTTER: Mahesh Melendez DO, PGY-2 SECOND INTERNET SOURCER: Mary Robert, medical student. ANESTHESIA ADMINISTERED BY: Jamie Pratt MD TYPE OF ANESTHESIA: General endotracheal - Marcaine 0.5-13 mL. PREOPERATIVE DIAGNOSES: 1. Acute appendicitis. 2. Morbid obesity. 3. Hypertension. POSTOPERATIVE DIAGNOSES: 1. Acute appendicitis. 2. Morbid obesity. 3. Hypertension. PROCEDURE: Laparoscopic appendectomy. 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 The patient is attempting to sign against advice and go back to work but his boss was called and he is advised that he has acute appendicitis and needs urgent surgery. He was evaluated in the emergency room with a white count of over 20,000, a CAT scan demonstrating enlarged inflamed appendix and a history of having a similar event approximately 6 months earlier. He takes no medications at home, has been dieting and is under the impression that his diet or constipation has contributed to this clinical presentation. Risks, benefits and alternatives with their anticipated outcomes were discussed with the patient and he signs the informed consent. He is hydrated, loaded with antibiotics and brought to the operating for emergent appendectomy. OPERATIVE NOTE: The patient was brought to the operating room, identified by his wrist band, undergoes time-out procedure and was placed on a table in a supine manner. He has voided just prior to the procedure and he undergoes the induction of general anesthesia with the insertion of an endotracheal tube and sequential compression devices were placed on his lower extremity. The abdomen was electrically clipped, prepped with Hibiclens and chlorhexidine preparation and the patient was then aseptically draped. The umbilicus was elevated on towel clips, infiltrated with bupivacaine as RO other port sites and incision made above the umbilicus and a Veress needle inserted into the peritoneal cavity and the abdomen insufflated with carbon dioxide gas to 14 mmHg pressure. The Veress needle was removed and replaced with a 12-mm Visiport and the Storz laparoscope was inserted and the abdomen explored. Under direct vision, 2 ports were placed in the left side of the abdomen, in the lower quadrant a 12-mm port and in the upper quadrant a 5-mm port. The patient was then rolled to the left lateral position to expose the ascending colon and cecum and the cecum was grasped demonstrating the inflamed appendix, which was grasped with a Prestige clamp, and utilizing a LigaSure device, the mesentery of the appendix is transected hemostatically, and using an Endo SABRINA stapler (3.5), the base of the appendix was transected and stapled shut. It was placed in an EndoCatch, brought out through the midline port and submitted to pathology in formalin. The appendix appears to be significantly inflamed without evidence of perforation at the time of surgery. The staple line was now reinspected and seemed to be hemostatically intact with no bleeding and the right side of the gutter and pelvis were lavaged with normal saline solution until the return was marked clear. Using the exit closure device and 2-0 PDS ligature, the exit ports were closed and the skin was closed with 4-0 Biosyn subcuticular closure and Steri-Strips. A dry dressing was applied to each site. The patient was then awakened, extubated and transported to the recovery room in a satisfactory condition. Sponge, instrument and suture counts were verified as correct at the end of the procedure. Estimated blood loss during this procedure was essentially nil. Sponge, instrument and suture counts were all verified as correct. The surgical assistants were present throughout the procedure from beginning to end and were extremely essential in the dissection and removal of the appendix. Florencio Doherty MD
--- NOTE | 2017-06-30 05:57 | HP ---
ADDENDUM The patient is a 47-year-old morbidly obese male who presented to the emergency room in the bologna maker hours of 06/17, complaining of abdominal pain, nausea, vomiting which started less than 24 hours ago. The patient came to the emergency room, ambulatory, walk-in. The patient was seen and examined with the director medical safety. The patient's vital signs, diagnostic data, imaging studies all reviewed. The patient was seen and evaluated with medical residents. IMPRESSION AND PLAN 1. Acute early appendicitis with abdominal pain and nausea, vomiting. 2. Morbid obesity. 3. History of poor compliance. 4. Hypertension. 5. Questionable systemic inflammatory response syndrome. 6. Leukocytosis. 7. Granulocytosis. 8. Hyperglycemia. 9. Fatty infiltration of the liver and hepatic steatosis. 10. Non-obstructing left nephrolithiasis 6 mm. PLAN: At this time, the patient has been ordered blood cultures, urine cultures ordered. The patient has been ordered serial labs. The patient was started on broad-spectrum IV antibiotic. The patient has been kept n.p.o., surgical consultation ordered, IV fluid. GI/DVT prophylaxis ordered. The patient has been ordered surgical consultation. At present, the patient was seen and evaluated for further management.. The patient was explained about the details of his medical condition. The patient was advised and possible need for surgical intervention. Consent answered with the patient and he understood. For further details about the patient's history and physical examination, please refer to the H and P dictated by the resident. Dictated and electronically signed, not read. Micah Cox MD [facility]
--- NOTE | 2017-06-30 20:41 | DS ---
HISTORY OF PRESENT ILLNESS: The patient was cleared for discharge by Surgery. The patient was cleared for discharge by Infectious Disease. The patient was cleared by Infectious Disease recommending no further IV antibiotic treatment. IMPRESSION AND PLAN: 1. Status post acute appendicitis. 2. Status post laparoscopic appendectomy. 3. Morbid obesity with elevated body mass index of 42. 4. Hypertension. 5. History of poor compliance. 6. Leukocytosis with granulocytosis. 7. Normocytic anemia. 8. Hypokalemia. 9. Hypovitaminosis D. 10. Hyperglycemia. 11. Microscopic hematuria. 12. Morbid obesity. 13. Coagulase-negative Staphylococcus aureus bacteremia versus contamination. 14. Mild normocytic anemia. 15. Subdiaphragmatic postoperative minimal free air. 16. Hepatic steatosis. 17. Nonobstructing left nephrolithiasis. 18. Hyperglycemia. 19. Leukocytosis with granulocytosis. 20. Acute appendicitis and periappendicitis. 21. Left ventricular ejection fraction of 60%. 22. Trace aortic regurgitation. 23. Mild mitral annular calcification with mild mitral regurgitation. 24. Mild tricuspid regurgitation with right ventricular systolic pressure of 42 mmHg. 1. Acute appendicitis. 2. Status post laparoscopic cholecystectomy. 3. Gram-positive cocci, questionable bacteremia versus sepsis. 4. Postoperative abdominal distention. 5. Leukocytosis with granulocytosis. 6. Morbid obesity. 7. History of hypertension, history of poor compliance, history of questionable dyslipidemia, history of prediabetes, history of hypovitaminosis D, history of obesity, history of cervical spine degenerative disc disease, history of questionable cervical radiculopathy. 8. Abdominal pain and tenderness and guarding. 9. Abdominal distention, etiology is examined. 1. Acute early appendicitis with abdominal pain and nausea, vomiting. 2. Morbid obesity. 3. History of poor compliance. 4. Hypertension. 5. Questionable systemic inflammatory response syndrome. 6. Leukocytosis. 7. Granulocytosis. 8. Hyperglycemia. 9. Fatty infiltration of the liver and hepatic steatosis. 10. Non-obstructing left nephrolithiasis 6 mm. The patient was cleared for discharge by Infectious Disease and Surgery. The patient was advised to follow up with Dr. Cox within 1 week and follow up with Dr. Doherty in 1 week. The patient was advised weight loss. The patient was advised strict compliance with medication. The patient was discharged on vitamin D, Drisdol 50,000 weekly. Time spent in the entire discharge process more than 45 minutes. Dictated and electronically signed, not read. Micah Cox MD [facility]
== END 2017-06-21 14:46 | disposition home or self-care (01) | DRG 342 ==
LOC: ED 06:36 → ERH 11:14 → 3RSO 12:38
PROVIDERS: ADMIT Internal Medicine; ATTEND Internal Medicine
PROC: 0DTJ4ZZ Resection of Appendix, Percutaneous Endoscopic Approach (ICD-10-PCS; principal; 2017-06-17 16:00)
DX: K35.80 Unspecified acute appendicitis (principal); Z68.41 Body mass index [BMI] 40.0-44.9, adult; I10 Essential (primary) hypertension; E66.01 Morbid (severe) obesity due to excess calories; E55.9 Vitamin D deficiency, unspecified; E87.6 Hypokalemia; K59.00 Constipation, unspecified; F17.290 Nicotine dependence, other tobacco product, uncomplicated; K29.70 Gastritis, unspecified, without bleeding; R40.2412 Glasgow coma scale score 13-15, at arrival to emergency department

== ENCOUNTER 2018-07-14 18:49 | Emergency (ER) | payer BC, OTHER ==
[2018-07-14 18:49] VITALS: BMI 42.3
[2018-07-14 19:12] VITALS: RESP 18
[2018-07-14 19:47] LABS: BASO # 0.01 K/mm3 (0.0-2.0); BASO % 0.1 % (0.0-3.0); EOS % 0.1 % (1.5-5.0); GRAN # 12.89 (1.4-6.5); GRAN % 82.2 % (50.0-68.0); HEMOGLOBIN 14.2 g/dL (14.0-18.0); LYMPH # 1.8 (1.2-3.4); LYMPH % 11.5 % (22.0-35.0); MEAN CELL VOLUME 85.5 fl (80.0-105.0); MEAN CORPUSCULAR HGB CONC 33.9 g/dl (31.0-37.0); MEAN PLATELET VOLUME 11.1 fl (7.0-11.0); MONO % 6.1 % (1.0-6.0); RBC 4.9 10^6/uL (3.5-6.1); RED CELL DISTRIBUTION WIDTH 12.5 % (11.5-14.5); WHITE BLOOD COUNT 15.7 10^3/ul (4.5-11.0)
[2018-07-14] MEDS ORDERED: Sodium Chloride 0.9% 1,000 ML IV STA (19:50)
[2018-07-14 19:57] LABS: ALB/GLOB RATIO 1.4 (1.1-1.8); ALBUMIN 4.5 g/dL (3.0-4.8); ALT/SGPT 37 U/L (7-56); AST/SGOT 43 U/L (17-59); BLOOD UREA NITROGEN 14 mg/dL (7-21); CALCIUM 9.2 mg/dL (8.4-10.5); GFR NON-AFRICAN AMERICAN 59; LIPASE 47 U/L (23-300)
[2018-07-14 20:25] LABS: PH,URINE 7.5 (4.7-8.0); URINE BILIRUBIN NEGATIVE (NEGATIVE); URINE BLOOD TRACE-INTACT (NEGATIVE); URINE GLUCOSE (UA) NEGATIVE (NEGATIVE); URINE LEUKOCYTE ESTERASE NEGATIVE Leu/uL (NEGATIVE); URINE PROTEIN NEGATIVE mg/dL (<30 mg/dL); URINE UROBILINOGEN 0.2 E.U./dL (<1 E.U./dL)
[2018-07-14 20:26] LABS: URINE APPEARANCE CLEAR (CLEAR); URINE COLOR YELLOW (YELLOW)
--- NOTE | 2018-07-14 20:38 | ED PDOC ---
Arrival/HPI - General Chief Complaint: Abdominal Pain Time Seen by Provider: 07/14/18 19:15 Historian: Patient - History of Present Illness Narrative History of Present Illness (Text): 07/14/18 20:33 Patient is a 48 year old male who presents to the Emergency Department complaining of abdominal pain and no bowel movements for the past 2 days. Patient states having diffuse lower abdominal pain, and describes the pain as someone punching him in the stomach. He admits to experiencing nausea without vomiting. He hasn't taken any medication for his abdominal pain at home. He has tried 2 Fleet's enema at home without any bowel movements. He denies any fever , chills, chest pain, shortness of breath, urinary symptoms, or testicular pain. Time/Duration: < week Symptom Onset: Sudden Symptom Course: Unchanged Context: Home Past Medical History - Provider Review Nursing Documentation Reviewed: Yes - Infectious Disease Hx of Infectious Diseases: None - Tetanus Immunization Tetanus Immunization: Unknown - Past Medical History Past Medical History: No Previous - Cardiac Hx Cardiac Disorders: Yes Hx Heart Murmur: Yes ( A CHILD) Hx Hypertension: Yes (controlled no meds) - Pulmonary Hx Respiratory Disorders: No (SMOKE H/O, vapes daily) - Neurological Hx Neurological Disorder: No - HEENT Hx HEENT Disorder: No (WEARS RX GLASSES) - Renal Hx Renal Disorder: No - Endocrine/Metabolic Hx Endocrine Disorders: No - Hematological/Oncological Hx Blood Disorders: No - Integumentary Other/Comment: 3 abd bandaids post op dry and intact, recent red rash to face - Musculoskeletal/Rheumatological Hx Musculoskeletal Disorders: Yes (2015 rhabdomylysis) Hx Falls: No - Gastrointestinal Hx Gastrointestinal Disorders: (GASTRITIS, obese) - Genitourinary/Gynecological Hx Genitourinary Disorders: No - Psychiatric Hx Psychophysiologic Disorder: No Hx Substance Use: No - Surgical History Hx Appendectomy: Yes Other/Comment: right hand sx 2nd finger - Anesthesia Hx Anesthesia: Yes Hx Anesthesia Reactions: No Hx Malignant Hyperthermia: No - Suicidal Assessment Feels Threatened In Home Enviroment: No Family/Social History - Physician Review Nursing Documentation Reviewed: Yes Family/Social History: No Known Family HX Smoking Status: Former Smoker Hx Alcohol Use: Yes (occasional social) Hx Substance Use: No Hx Substance Use Treatment: No Allergies/Home Meds Allergies/Adverse Reactions: Allergies No Known Allergies Allergy (Verified 07/14/18 19:01) Review of Systems - Physician Review All systems were reviewed & negative as marked: Yes - Review of Systems Constitutional: absent: Fevers, Other (chills) Respiratory: absent: SOB Cardiovascular: absent: Chest Pain Gastrointestinal: Abdominal Pain, Nausea, Other (No bowel movements). absent: Vomiting Genitourinary Male: Normal. absent: Urinary Output Changes, Other (testicular pain) Physical Exam Vital Signs Reviewed: Yes Vital Signs Temp Pulse Resp BP Pulse Ox 07/14/18 21:10 98.4 F 80 18 145/77 98 07/14/18 18:57 98.1 F 82 18 157/98 H 97 Temperature: Afebrile Blood Pressure: Hypertensive Pulse: Regular Respiratory Rate: Normal Appearance: Positive for: Well-Appearing Mental Status: Positive for: Alert and Oriented X 3 - Systems Exam Head: Present: Atraumatic, Normocephalic Mouth: Present: Moist Mucous Membranes Neck: Present: Normal Range of Motion Respiratory/Chest: Present: Clear to Auscultation, Good Air Exchange. No: Respiratory Distress, Accessory Muscle Use Cardiovascular: Present: Regular Rate and Rhythm, Normal S1, S2. No: Murmurs Abdomen: Present: Tenderness (Lower abdominal tenderness greatest in LLQ.), Other (hyperactive bowel sounds in RUQ). No: Distention, Normal Bowel Sounds, Peritoneal Signs Back: Present: Normal Inspection. No: CVA Tenderness, Paraspinal Tenderness Upper Extremity: Present: Normal Inspection. No: Cyanosis, Edema Lower Extremity: Present: Normal Inspection. No: Edema Neurological: Present: GCS=15, CN II-XII Intact, Speech Normal Skin: Present: Warm, Dry, Normal Color. No: Rashes Psychiatric: Present: Alert, Oriented x 3, Normal Insight, Normal Concentration Medical Decision Making ED Course and Treatment: 07/14/18 20:44 Patient is a 48 year old male who is complaining of diffuse lower abdominal pain and constipation. Plan: -- Abdominal and Pelvic CT with IV contrast -- EKG -- Chest X-ray -- Toradol -- IV fluids -- Reassess and disposition Prior Visits: Notes and results from previous visits were reviewed. Progress Notes: 07/14/18 22:22 Patient is nontoxic well-appearing in no distress with stable vital signs feeling better with medications denies any pain at this time. wbc; 15.7 cmp; wnl UA: + blood CT of the abdomen and pelvis:FINDINGS: Lower thorax: No acute findings. ABDOMEN: Liver: There is mild diffuse fatty infiltration of the liver. Gallbladder and bile ducts: . No calcified stones. No ductal dilation. Pancreas: . No ductal dilation. Spleen: . No splenomegaly. Adrenals: Diffuse nodularity of the left adrenal gland present. Kidneys and ureters: There is perinephric stranding of the left kidney. Mild diffuse prominence and left-sided hydronephrosis is evident with perinephric and periureteral fat stranding. This is likely caused by an obstructing 5 mm stone in the mid left ureter. Stomach and bowel: Scattered diverticula of the colon present. Appendix: . Appendectomy. PELVIS: Bladder: Unremarkable as visualized. Reproductive: Unremarkable as visualized. ABDOMEN and PELVIS: Intraperitoneal space: Normal. No free air. No significant fluid collection. Bones/joints: No acute fracture. No dislocation. Soft tissues: Fat-containing left inguinal hernia present. Vasculature: Normal. No abdominal aortic aneurysm. Lymph nodes: Normal. No enlarged lymph nodes. IMPRESSION: 1. There is perinephric stranding of the left kidney. Mild diffuse prominence and left-sided hydronephrosis is evident with perinephric and periureteral fat stranding. This is likely caused by an obstructing 5 mm stone in the mid left ureter. 2. Scattered diverticula of the colon present. 3. Diffuse nodularity of the left adrenal gland present. EKG: Normal sinus rhythm at 7 beats per minute normal axis no ST elevations incomplete right bundle branch block6 Case was discussed with Dr. Rajan in depth advised follow-up in the office within the next 2 days. Patient verbalizes understanding of discharge instructions and need for immediate followup. all aspects of this case were discussed the attending of record. Impression: Kidney stone, hydronephrosis, hydroureter, hematuria, abdominal pain motrin every 6 hours as needed for pain colace 1 capsule twice daily keflex; 1 capsule twice daily x 7 days Increase fluids Follow up with dr. rajan within the next 2 days. Follow up with the primary care physician within the next 2 days. Return immediately if symptoms worsen,persist or if new symptoms develop. - Lab Interpretations Lab Results: 07/14/18 19:40 07/14/18 19:40 Lab Results 07/14/18 20:18: Urine Color Yellow, Urine Appearance Clear, Urine pH 7.5, Ur Specific [place] 1.015, Urine Protein Negative, Urine Glucose (UA) Negative, Urine Ketones Negative, Urine Blood Trace-intact H, Urine Nitrate Negative, Urine Bilirubin Negative, Urine Urobilinogen 0.2, Ur Leukocyte Esterase Negative , Urine RBC 0 - 2, Urine WBC 2 - 5, Ur Epithelial Cells 4 - 5, Urine Bacteria Few 07/14/18 19:40: WBC 15.7 H D, RBC 4.90, Hgb 14.2, Hct 41.9 L, MCV 85.5, MCH 29.0 , MCHC 33.9, RDW 12.5, Plt Count 281, MPV 11.1 H, Gran % 82.2 H, Lymph % (Auto) 11.5 L, [place] % (Auto) 6.1 H, Eos % (Auto) 0.1 L, Baso % (Auto) 0.1, Gran # 12.89 H, Lymph # (Auto) 1.8, [place] # (Auto) 1.0 H, Eos # (Auto) 0.0, Baso # (Auto ) 0.01 07/14/18 19:40: Sodium 141, Potassium 4.3, Chloride 102, Carbon Dioxide 27, Anion Gap 17, BUN 14, Creatinine 1.3, Est GFR ( Amer) > 60, Est GFR (Non- Af Amer) 59, Random Glucose 115 H, Calcium 9.2, Total Bilirubin 0.4, AST 43, ALT 37, Alkaline Phosphatase 97, Total Protein 7.7, Albumin 4.5, Globulin 3.1, Albumin/Globulin Ratio 1.4, Lipase 47 I have reviewed the lab results: Yes - RAD Interpretation Radiology Orders: 07/14/18 19:18 ABD & PELVIS IV CONTRAST ONLY [CT] Stat CHEST ONE VIEW [RAD] Stat - Medication Orders Current Medication Orders: Discontinued Medications Cephalexin Monohydrate (Keflex) 500 mg PO STAT STA PRN Reason: Protocol Stop: 07/14/18 22:11 Last Admin: 07/14/18 22:37 Dose: 500 mg Sodium Chloride (Sodium Chloride 0.9%) 1,000 mls @ 999 mls/hr IV .Q1H1M STA Stop: 07/14/18 20:50 Last Admin: 07/14/18 20:20 Dose: 999 mls/hr eMAR Start Stop Document 07/14/18 20:20 LA (Rec: 07/14/18 20:21 LA [id number]) Intravenous Solution Start Date 07/14/18 Start Time 20:20 End Date 07/14/18 End time 21:21 Total Infusion Time 61 Ketorolac Tromethamine (Toradol) 30 mg IVP STAT STA Stop: 07/14/18 19:51 Last Admin: 07/14/18 20:24 Dose: 30 mg [facility] Pain Assessment Document 07/14/18 20:24 LA (Rec: 07/14/18 20:24 LA [id number]) Pain Reassessment Is this a pain reassessment? No Sleep Is patient sleeping during reassessment? No Presence of Pain Presence of Pain Yes Pain Scale Used Pain Scale Used Numeric Location Pain Location Body Site Abdomen Description Intensity of Pain at present 7 Pain Behavior Guarding IVP Administration Document 07/14/18 20:24 LA (Rec: 07/14/18 20:24 SC [id number]) Charges for Administration # of IVP Administrations 1 Re-Assess: [facility] Pain Assessment Document 07/14/18 21:24 LA (Rec: 07/14/18 22:38 LA [id number]) Pain Reassessment Is this a pain reassessment? Yes Sleep Is patient sleeping during reassessment? No Presence of Pain Presence of Pain Yes Pain Scale Used Pain Scale Used Numeric Location Pain Location Body Site Abdomen Description Description Intermittent Intensity of Pain at present 3 Pain Behavior Facial Grimacing Tamsulosin HCl (Flomax) 0.4 mg PO STAT STA Stop: 07/14/18 22:31 Last Admin: 07/14/18 22:37 Dose: 0.4 mg - Scribe Statement The provider has reviewed the documentation as recorded by the Cheriseibaydee Guerra Provider Scribe Attestation: All medical record entries made by the Cheriseibaydee were at my direction and personally dictated by me. I have reviewed the chart and agree that the record accurately reflects my personal performance of the history, physical exam, medical decision making, and the department course for this patient. I have also personally directed, reviewed, and agree with the discharge instructions and disposition. Disposition/Present on Arrival - Present on Arrival Any Indicators Present on Arrival: No History of DVT/PE: No History of Uncontrolled Diabetes: No Urinary Catheter: No History of Decub. Ulcer: No History Surgical Site Infection Following: None - Disposition Have Diagnosis and Disposition been Completed?: Yes Diagnosis: Kidney stone, Hydronephrosis, Hydroureter, Hematuria, Abdominal pain Disposition: HOME/ ROUTINE Disposition Time: 22:09 Patient Plan: Discharge Condition: GOOD Discharge Instructions (ExitCare): Kidney Stones (DC), Blood in the Urine ( Hematuria), Adult (DC), Hydronephrosis, Adult (DC) Additional Instructions: motrin every 6 hours as needed for pain colace 1 capsule twice daily keflex; 1 capsule twice daily x 7 days Increase fluids Follow up with dr. rajan within the next 2 days. Follow up with the primary care physician within the next 2 days. Return immediately if symptoms worsen,persist or if new symptoms develop. Prescriptions: Cephalexin [Keflex] 500 mg PO BID #14 capsule Docusate [Colace] 100 mg PO BID #30 cap Ibuprofen [Motrin] 600 mg PO Q6H PRN #20 tab PRN Reason: pain/fever reduction oxyCODONE/Acetaminophen [Percocet 5/325 mg Tab] 1 tab PO Q6H PRN #6 tab PRN Reason: moderate to severe pain Tamsulosin [Flomax] 0.4 mg PO DAILY #4 cap Referrals: Alli Rajan MD [Staff Provider] - Follow up with primary Suze Hodgson MD [Medical Doctor] - Follow up with primary [facility] [Outside] - Follow up with primary Forms: [employer] (Georgian), WORK NOTE
[2018-07-14 20:44] LABS: URINE BACTERIA FEW (NEG); URINE RBC 0 - 2 /hpf (0-2)
[2018-07-14 21:12] VITALS: BP 145/77; PULSE 80; TEMP 98.4; O2SAT 98
--- NOTE | 2018-07-15 09:26 | RAD ---
Date of service: 07/14/2018 PROCEDURE: CHEST RADIOGRAPH, 1 VIEW HISTORY: abd pain COMPARISON: Chest radiographs 06/18/2017. FINDINGS: LUNGS: Clear. PLEURA: No pneumothorax or pleural fluid seen. CARDIOVASCULAR: Normal. OSSEOUS STRUCTURES: No significant abnormalities. VISUALIZED UPPER ABDOMEN: Normal. OTHER FINDINGS: None. IMPRESSION: No interval acute cardiopulmonary disease appreciated.
--- NOTE | 2018-07-15 09:48 | CARD ---
APPROVED REPORT Date of service: 07/14/2018 EKG Measurement Heart [id number] CT 180P55 [id number] <Conclusion> Normal sinus rhythm Incomplete right bundle branch block Borderline ECG
--- NOTE | 2018-07-15 10:02 | CT ---
Date of service: 07/14/2018 PROCEDURE: CT Abdomen and Pelvis with contrast HISTORY: abd pain COMPARISON: Abdomen pelvis CT with contrast 06/19/2017. TECHNIQUE: Following the intravenous administration of iodinated contrast material, a CT examination of the abdomen and pelvis performed from the domes of the diaphragms to the symphysis pubis with reformatted datasets provided in axial, sagittal and coronal planes. Oral contrast was not administered as per referring physician request. Coronal and sagittal reformats were generated. Contrast dose: Omnipaque 350, 100 cc Radiation dose: Total exam DLP = 1224.86 mGy-cm. This CT exam was performed using one or more of the following dose reduction techniques: Automated exposure control, adjustment of the mA and/or kV according to patient size, and/or use of iterative reconstruction technique. FINDINGS: LOWER THORAX: Unremarkable. LIVER: Liver remains grossly nonfocal with prior subdiaphragmatic free intra peritoneal gas not identified currently. GALLBLADDER AND BILE DUCTS: Unremarkable. PANCREAS: Unremarkable. No gross lesion or ductal dilatation. SPLEEN: Unremarkable. ADRENALS: Unremarkable right adrenal gland. Borderline nodule left adrenal gland, stable. KIDNEYS AND URETERS: Right kidney appears unremarkable however, there is delayed left nephrogram with mild left perinephric reaction. Mild proximal left hydroureter is evident with obstructive uropathy of the left kidney caused by a 4.0 x 8.0 mm calculus lodged at the proximal right ureter at the L4 vertebral body level, previous demonstrate the upper pole left kidney intrarenal in location. Limited periureteral reaction is seen the proximal left ureter as well. VASCULATURE: Unremarkable. No aortic aneurysm. BOWEL: Unremarkable. No obstruction. No gross mural thickening. APPENDIX: Question of prior appendectomy as a stump like density is seen at the base of the cecum with the terminal hyperdense focus. This may represent a tiny appendix with the appendicular left or surgical clip at prior appendectomy stump. Clinically correlate. PERITONEUM: Unremarkable. No free fluid. No free air. LYMPH NODES: Unremarkable. No enlarged lymph nodes. BLADDER: Unremarkable. REPRODUCTIVE: Unremarkable. BONES: No acute fracture. OTHER FINDINGS: None. IMPRESSION: Mild left-sided obstructive uropathy is appreciated caused by 4.0 x 8.0 mm calculus obstructing the proximal left ureter resulting in delayed left nephrogram, left danae renal reaction and mild proximal left hydroureter/ periureteral reaction. Punctate intrarenal calculus remains at the upper pole left kidney with none on the right. Urinary bladder appears unremarkable. Questionable prior appendectomy. Clinically correlate further. Borderline left adrenal gland nodule, stable.
== END 2018-07-14 22:59 | disposition home or self-care (01) ==
LOC: ED 18:49
DX: N13.2 Hydronephrosis with renal and ureteral calculous obstruction (principal); N13.4 Hydroureter; R31.9 Hematuria, unspecified; R10.30 Lower abdominal pain, unspecified; I10 Essential (primary) hypertension; Z87.891 Personal history of nicotine dependence
CPT/HCPCS: 71045; 74177; 80053; 81001; 83690; 85025; 93005; 96361; 96374; 99284; J1885; J7030; Q9967

== ENCOUNTER 2019-02-25 09:10 | Outpatient (CLI) | payer OTHER | END 2019-02-25 09:11 | disposition home or self-care (01) | LOC: LAB 09:10 ==

== ENCOUNTER 2019-03-01 14:22 | Outpatient (CLI) | payer OTHER | END 2019-03-01 14:23 | disposition home or self-care (01) | LOC: RAD 14:22 ==